=== PATIENT | female | born 1940 | race Caucasian/White ===

== ENCOUNTER 2018-10-17 01:55 | Inpatient (IN) | payer OTHER, MEDICARE ==
[2018-10-17] MEDS ORDERED: NS 1,000 ML IV ONE (02:12)
[2018-10-17 02:28] LABS: PLATELET COUNT 237 10^3/uL (150-400)
--- NOTE | 2018-10-17 04:08 | EDPHY ---
H & P Stated Complaint: frequent falls and memory issues Time Seen by Provider: 10/17/18 02:54 HPI/ROS: HPI The patient presents with increased falls at home, brought in by ambulance. As she lives at home with her son who helps her with many of her ADLs. She has had 3 falls over the last 4 days. She tonight got up to use the bathroom and fell on her way to the bathroom and was unable to get up. She has had similar events over the last several days. Her son says that she normally falls about once a month and it is not very serious, however her falls have become more severe. Two weeks ago she fell and has ongoing left wrist swelling and pain. She does not believe she has lost consciousness. She does not have any chest pain or shortness of breath. Her son says that over the last several weeks they have stopped her antihypertensives and are trying an herbal supplement. She has also stopped her Alzheimer's medications. Her son says that in general she seems more sluggish than usual. She has been eating and drinking normally. REVIEW OF SYSTEMS 10 systems were reviewed and negative with the exception of the elements mentioned in the history of present illness. PMHx: Hypertension, history of CVA, Alzheimer's dementia, primary care is Dr. Cindy Graham Soc Hx: Lives at home with her son who helps her with cooking, cleaning, she toilets herself and can feed herself PHYSICAL General Appearance: Alert, no distress Eyes: Pupils equal and round no pallor or injection ENT, Mouth: Mucous membranes dry Respiratory: There are no retractions, lungs are clear to auscultation Cardiovascular: Regular rate and rhythm Gastrointestinal: Abdomen is soft and non-tender, no masses, bowel sounds normal Neurological: A&O person and place, moves all extremities, no pronator drift Skin: Warm and dry, no rashes Musculoskeletal: Obvious deformity to left wrist with sensation intact distally and brisk capillary refill Extremities: symmetrical, full range of motion Psychiatric: there is no agitation Source: Patient, Family, EMS Exam Limitations: Clinical condition - Personal History Current Tetanus Diphtheria and Acellular Pertussis (TDAP): Unsure - Medical/Surgical History Hx Asthma: No Hx Chronic Respiratory Disease: No Hx Diabetes: No Hx Cardiac Disease: No Hx Renal Disease: Yes Hx Cirrhosis: No Hx Alcoholism: No Hx HIV/AIDS: No Hx Splenectomy or Spleen Trauma: No Other PMH: PMH:HTN, CVAx2,DVT. PSH:hyst, - Social History Smoking Status: Never smoked Constitutional: Initial Vital Signs Temperature (C) 36.8 C 10/17/18 02:03 Heart Rate 105 H 10/17/18 02:03 Respiratory Rate 18 10/17/18 02:03 Blood Pressure 167/94 H 10/17/18 02:03 O2 Sat (%) 91 L 10/17/18 02:03 O2 Delivery Mode Room Air Allergies/Adverse Reactions: penicillin V potassium [From Pen-Vee K] Allergy (Verified 10/17/18 02:03) IVP DYE Allergy (Uncoded 10/17/18 02:03) Home Medications: Medication Instructions Recorded Aspirin [Aspirin 81mg (*)] 81 mg PO HS 10/17/18 Atorvastatin Calcium [Lipitor 20 20 mg PO HS 10/17/18 mg (*)] Cholecalciferol Vit D3 [Vitamin D3 1,000 units PO DAILY 10/17/18 (*)] Donepezil HCl [Aricept 5 MG (*)] 10 mg PO HS 10/17/18 Escitalopram Oxalate [Lexapro] 5 mg PO HS 10/17/18 Herbals/Supplements -Info Only 1 ea PO DAILY 10/17/18 Lisinopril [Zestril 10 mg (*)] 10 mg PO HS 10/17/18 Melatonin [Melatonin 3 MG (*)] 3 - 6 mg PO HS 10/17/18 Sennosides/Docusate Sodium 1 each PO DAILY PRN 10/17/18 [Senna-S Tablet] amLODIPine BESYLATE [Norvasc 10 mg 10 mg PO HS 10/17/18 (*)] Medical Decision Making - Diagnostics EKG Interpretation: EKG: Complete interpretation has been separately recorded in the [facility] archive. Summary impression: Normal sinus rhythm Imaging Results: Chest x-ray single view shows mild cardiomegaly, no infiltrate, interpreted by me, radiology interpretation is pending. X-ray left wrist three views shows old distal radius and ulnar fractures, interpreted by me, radiology interpretation is pending. CT head without contrast demonstrates no acute bleed, discussed with Dr. Chapman of Radiology Imaging: Discussed imaging studies w/ call taker Radiologist, I viewed and interpreted images myself Procedures: SPLINT Procedure: Splint placement. A ortho glass sugar-tong splint was applied to the left wrist by the tech. After application of the splint I returned and re-examined the patient. The splint was adequately immobilizing the joint and distal to the splint the patient's circulation and sensation was intact. Differential Diagnosis: This is an 78-year-old female with past medical history of hypertension, CVA, Alzheimer's dementia who presents with increasing falls at home over the last 4 days in association with generalized weakness. Here, she is hypertensive, otherwise vital signs are normal. She appears mildly dehydrated on exam. Her neurologic exam is nonfocal. Differential diagnosis includes subdural hemorrhage, electrolyte disturbance, renal failure, dehydration, infection such as urinary tract infection or pneumonia. In the emergency department, patient was given supplemental IV fluids for mild tachycardia of about 100. Labs were checked and were unremarkable, UA was indicative of infection. CT scan of head showed no acute bleeding. X-ray of wrist demonstrates old Colles fracture. We will splint this. I do not believe it needs emergent reduction given fall was 2 weeks ago. She may benefit from orthopedics consult while admitted to the hospital. Because of her urinary tract infection and concern for her falls and safety at home, I will admit her to the hospitalist service. - Data Points Laboratory Results: Laboratory Results 10/17/18 02:14 10/17/18 02:14 Medications Given: Acetaminophen (Tylenol) 650 mg PO Q4HRS PRN PRN Reason: Pain, Mild/Fever, Can Take PO Stop: 04/15/19 04:24 Last Admin: 10/17/18 19:41 Dose: 650 mg Amlodipine Besylate (Norvasc) 10 mg PO HS MIRANDA Stop: 04/15/19 20:59 Last Admin: 10/17/18 19:42 Dose: 10 mg Aspirin (Aspirin) 81 mg PO HS MIRANDA Stop: 04/15/19 20:59 Last Admin: 10/17/18 19:42 Dose: 81 mg Atorvastatin Calcium (Lipitor) 20 mg PO HS MIRANDA Stop: 04/15/19 20:59 Last Admin: 10/17/18 19:42 Dose: 20 mg Donepezil HCl (Aricept) 10 mg PO HS MIRANDA Stop: 04/15/19 20:59 Last Admin: 10/17/18 19:42 Dose: 10 mg Escitalopram Oxalate (Lexapro) 5 mg PO HS [facility] Stop: 04/15/19 20:59 Last Admin: 10/17/18 19:41 Dose: 5 mg Heparin Sodium (Porcine) (Heparin Sc Injection) 5,000 unit SC BID [facility] Stop: 04/15/19 08:59 Last Admin: 10/17/18 19:42 Dose: 5,000 unit Hydralazine HCl (Apresoline) 10 mg IVP Q6HRS PRN PRN Reason: SBP>160 Stop: 04/15/19 08:55 Last Admin: 10/17/18 15:44 Dose: 10 mg Lisinopril (Zestril) 10 mg PO [facility] Stop: 04/15/19 20:59 Last Admin: 10/17/18 19:42 Dose: 10 mg Melatonin (Melatonin) 3 - 6 mg PO [facility] Stop: 04/15/19 20:59 Last Admin: 10/17/18 19:42 Dose: 3 mg Discontinued Medications Sodium Chloride (Ns) 1,000 mls @ 0 mls/hr IV ONCE ONE; Wide Open PRN Reason: Protocol Stop: 10/17/18 02:13 Last Admin: 10/17/18 02:49 Dose: 1,000 mls Ceftriaxone Sodium/Dextrose (Rocephin 1 Gm (Premix)) 50 mls @ 100 mls/hr IV EDNOW ONE PRN Reason: Protocol Stop: 10/17/18 04:52 Last Admin: 10/17/18 04:54 Dose: 50 mls Departure - Departure Disposition: [facility] Inpatient Acute Clinical Impression: Falls frequently, Distal radius fracture, left UTI (urinary tract infection) Qualifiers: Urinary tract infection type: site unspecified Hematuria presence: without hematuria Qualified Code(s): N39.0 - Urinary tract infection, site not specified HTN (hypertension) Qualifiers: Hypertension type: essential hypertension Qualified Code(s): I10 - Essential ( primary) hypertension Alzheimer disease Qualifiers: Alzheimer's disease onset: unspecified onset Dementia behavioral disturbance: without behavioral disturbance Qualified Code(s): G30.9 - Alzheimer's disease, unspecified Condition: Fair
[2018-10-17] MEDS ORDERED: ONDANSETRON 4 MG/2 ML VIAL IVP PRN (04:25)
[2018-10-17] MEDS ORDERED: ONDANSETRON DISINTEGRATING 4 MG TAB PO PRN (04:25)
--- NOTE | 2018-10-17 04:56 | PDGENHP ---
History and Physical - Chief Complaint Falls - History of Present Illness 78 yo F w/ hx of Alzheimer's dementia, HTN, CKD, stroke, and DVT presents with falls. The patient suffered a fall 2 weeks ago and hurt her L wrist. Then, over the last few days, the patient has fallen about 4 times. She denies LOC or head trauma. Her son, Satnam, who is her primary caregiver tells me this is unusual for her. He states it is common for her to fall once every few months. He has also noted that her memory is a bit worse than usual. She is A&Ox2 on my evaluation, which he states is close to baseline. She denies infectious symptoms including dysuria, frequency, and fever. Examination in the ED is notable for L wrist fracture and possible UTI. Patient is being admitted for observation and PT/OT evaluations. Case discussed with ED physician Dr. Cloud; records reviewed and summarized above. History Information - Allergies/Home Medication List Allergies/Adverse Reactions: penicillin V potassium [From Pen-Vee K] Allergy (Verified 10/17/18 02:03) IVP DYE Allergy (Uncoded 10/17/18 02:03) Home Medications: Flexeril 07/15/10 [Last Taken Unknown] LISINOPRIL 07/15/10 [Last Taken Unknown] Lopressor 07/15/10 [Last Taken Unknown] MELATONEX TABLET 07/15/10 [Last Taken Unknown] Norvasc 10 mg 07/15/10 [Last Taken Unknown] SIMVASTATIN 07/15/10 [Last Taken Unknown] Sinestin 07/15/10 [Last Taken Unknown] Lexapro 10/17/18 [Last Taken Unknown] Norvasc 10 mg (*) 10/17/18 [Last Taken Unknown] I have personally reviewed and updated: family history, medical history - Past Medical History CVA, dementia, DVT, hypertension Additional medical history: CKD - Surgical History Reports: hysterectomy - Family History Positive for: CAD - Social History Smoking Status: Never smoked Review of Systems Review of Systems: ROS: 10pt was reviewed & negative except for what was stated in HPI & below Physical Exam Physical Exam: Temp Pulse Resp BP Pulse Ox 36.6 C 84 16 168/74 H 92 10/17/18 04:14 10/17/18 04:14 10/17/18 04:14 10/17/18 04:14 10/17/18 04:14 Constitutional: no apparent distress, appears nourished Eyes: PERRL, EOMI Ears, Nose, Mouth, Throat: moist mucous membranes, no oral mucosal ulcers Cardiovascular: regular rate and rhythym, no murmur, rub, or gallop Respiratory: no respiratory distress, clear to auscultation Gastrointestinal: normoactive bowel sounds, soft, non-tender abdomen Skin: warm, normal color Musculoskeletal: full muscle strength, no muscle tenderness Neurologic: CN II-XII Intact, other (A&Ox2, neurologic exam non-focal aside from mild b/l leg weakness R>L) Psychiatric: interacting appropriately, not anxious, poor memory Lab Data & Imaging Review 10/17/18 02:14 10/17/18 02:14 WBC 7.05 10^3/uL (3.80-9.50) 10/17/18 02:14 RBC 4.73 10^6/uL (4.18-5.33) 10/17/18 02:14 Hgb 14.2 g/dL (12.6-16.3) 10/17/18 02:14 Hct 42.4 % (38.0-47.0) 10/17/18 02:14 MCV 89.6 fL (81.5-99.8) 10/17/18 02:14 MCH 30.0 pg (27.9-34.1) 10/17/18 02:14 MCHC 33.5 g/dL (32.4-36.7) 10/17/18 02:14 RDW 14.0 % (11.5-15.2) 10/17/18 02:14 Plt Count 237 10^3/uL (150-400) 10/17/18 02:14 MPV 8.6 fL (8.7-11.7) L 10/17/18 02:14 Neut % (Auto) 78.2 % (39.3-74.2) H 10/17/18 02:14 Lymph % (Auto) 12.1 % (15.0-45.0) L 10/17/18 02:14 [place] % (Auto) 7.1 % (4.5-13.0) 10/17/18 02:14 Eos % (Auto) 1.7 % (0.6-7.6) 10/17/18 02:14 Baso % (Auto) 0.6 % (0.3-1.7) 10/17/18 02:14 Nucleat RBC Rel Count 0.0 % (0.0-0.2) 10/17/18 02:14 Absolute Neuts (auto) 5.52 10^3/uL (1.70-6.50) 10/17/18 02:14 Absolute Lymphs (auto) 0.85 10^3/uL (1.00-3.00) L 10/17/18 02:14 Absolute Monos (auto) 0.50 10^3/uL (0.30-0.80) 10/17/18 02:14 Absolute Eos (auto) 0.12 10^3/uL (0.03-0.40) 10/17/18 02:14 Absolute Basos (auto) 0.04 10^3/uL (0.02-0.10) 10/17/18 02:14 Absolute Nucleated RBC 0.00 10^3/uL (0-0.01) 10/17/18 02:14 Immature Gran % 0.3 % (0.0-1.1) 10/17/18 02:14 Immature Gran # 0.02 10^3/uL (0.00-0.10) 10/17/18 02:14 Sodium 136 mEq/L (135-145) 10/17/18 02:14 Potassium 3.6 mEq/L (3.5-5.2) 10/17/18 02:14 Chloride 107 mEq/L (97-110) 10/17/18 02:14 Carbon Dioxide 20 mEq/l (22-31) L 10/17/18 02:14 Anion Gap 9 mEq/L (6-14) 10/17/18 02:14 BUN 20 mg/dL (7-23) 10/17/18 02:14 Creatinine 1.3 mg/dL (0.6-1.0) H 10/17/18 02:14 Estimated GFR 39 10/17/18 02:14 Glucose 150 mg/dL (70-100) H 10/17/18 02:14 Calcium 9.3 mg/dL (8.5-10.4) 10/17/18 02:14 Total Bilirubin 0.6 mg/dL (0.1-1.4) 10/17/18 02:14 AST 17 IU/L (14-46) 10/17/18 02:14 ALT 27 IU/L (9-52) 10/17/18 02:14 Alkaline Phosphatase 75 IU/L (38-126) 10/17/18 02:14 Total Protein 6.0 g/dL (6.3-8.2) L 10/17/18 02:14 Albumin 3.6 g/dL (3.5-5.0) 10/17/18 02:14 Urine Color YELLOW 10/17/18 03:40 Urine Appearance HAZY 10/17/18 03:40 Urine pH 5.0 (5.0-7.5) 10/17/18 03:40 Ur Specific [place] 1.017 (1.002-1.030) 10/17/18 03:40 Urine Protein 2+ (NEGATIVE) H 10/17/18 03:40 Urine Ketones 1+ (NEGATIVE) H 10/17/18 03:40 Urine Blood NEGATIVE (NEGATIVE) 10/17/18 03:40 Urine Nitrate POSITIVE (NEGATIVE) H 10/17/18 03:40 Urine Bilirubin NEGATIVE (NEGATIVE) 10/17/18 03:40 Urine Urobilinogen NEGATIVE EU (0.2-1.0) 10/17/18 03:40 Ur Leukocyte Esterase 2+ (NEGATIVE) H 10/17/18 03:40 Urine Glucose NEGATIVE (NEGATIVE) 10/17/18 03:40 Urine Opiates Screen NEGATIVE (NEGATIVE) 10/17/18 03:40 Urine Barbiturates NEGATIVE (NEGATIVE) 10/17/18 03:40 Ur Phencyclidine Scrn NEGATIVE (NEGATIVE) 10/17/18 03:40 Ur Amphetamine Screen NEGATIVE (NEGATIVE) 10/17/18 03:40 U Benzodiazepines Scrn NEGATIVE (NEGATIVE) 10/17/18 03:40 Urine Cocaine Screen NEGATIVE (NEGATIVE) 10/17/18 03:40 U Marijuana (THC) Screen NEGATIVE (NEGATIVE) 10/17/18 03:40 Ethyl Alcohol < 10 mg/dL (0-10) 10/17/18 02:14 Visualized and Interpreted Chest x-ray results: Yes Chest X-Ray results: no infiltrate Visualized and Interpreted EKG results: Yes EKG Interpretation: Positive for: other (Sinus tachycardia) Assessment & Plan Assessment: 78 yo F w/ dementia presents with falls possibly due to UTI. Plan: 1. UTI v. asymptomatic bacteriuria - UA w/ 2+ LE and +nitrates; this possibly explains increased frequency of falls. - CTX 1 g qD - Urine culture pending 2. Falls - Possibly due to UTI. Her son is also concerned about stroke noting she has had small, subtle strokes in the past. This is certainly a possibility as she has numerous risk factors (HTN, hx CVA, hx DVT, etc). Her neurological exam is largely non-focal aside from mild leg weakness R>L; son states this is baseline. Noting symptoms have been present for 4-5 days and she has no clear, new neurologic deficits, I think it reasonable to monitor for improvement while on antibiotics prior to undergoing stroke work-up. - Treat possible UTI as above - PT/OT evaluations 3. Acute metabolic on chronic encephalopathy - Confusion mildly increased above baseline, perhaps related to infection. - Acute management as above - Recently discontinued Aricept, which I doubt is contributing 4. Hypertension - This is poorly controlled at the moment after stopping amlodipine and lisinopril over the last month in an effort to decreased medication burden. - Monitor overnight, consider restarting amlodipine tomorrow 5. CKD, Stage III - Cr 1.3 on admission, which is near baseline. - Monitor BMP - Renally dose medications, avoid nephrotoxic agents 6. Hx DVT. PE - In the remote past, no longer on anticoagulation. Diet - Regular Code - Full Ppx - SQH BID Dispo - Admit under observation status
[2018-10-17] MEDS: HEPARIN 5,000 UNIT/0.5 ML INJ SC SCH ×2 (07:47→19:42)
[2018-10-17] MEDS: ACETAMINOPHEN 325 MG TAB PO PRN ×3 (08:15→19:41)
[2018-10-17] MEDS: hydrALAZINE 20 MG/ML VIAL IVP PRN ×2 (09:12→15:44)
[2018-10-17] MEDS ORDERED: SENNOSIDES/DOCUSATE SODIUM TAB PO PRN (09:22)
--- NOTE | 2018-10-17 13:57 | HOSPPROG ---
Hospitalist Progress Note Assessment/Plan: 78 yo F w/ dementia presents with falls possibly due to UTI. #UTI v. asymptomatic bacteriuria - UA w/ 2+ LE and +nitrates; this possibly explains increased frequency of falls. - CTX 1 g qD - Urine culture pending # Falls - Possibly due to UTI. Her son is also concerned about stroke noting she has had small, subtle strokes in the past. This is certainly a possibility as she has numerous risk factors (HTN, hx CVA, hx DVT, etc). Her neurological exam is largely non-focal aside from mild leg weakness R>L; son states this is baseline. Noting symptoms have been present for 4-5 days and she has no clear, new neurologic deficits, I think it reasonable to monitor for improvement while on antibiotics prior to undergoing stroke work-up. - Treat possible UTI as above - PT/OT evaluations #Acute metabolic on chronic encephalopathy - Confusion mildly increased above baseline, perhaps related to infection. - Acute management as above - Recently discontinued Aricept, which I doubt is contributing # Hypertension - This is poorly controlled at the moment after stopping amlodipine and lisinopril over the last month in an effort to decreased medication burden. - Monitor overnight, consider restarting amlodipine tomorrow # CKD, Stage III - Cr 1.3 on admission, which is near baseline. - Monitor BMP - Renally dose medications, avoid nephrotoxic agents # Hx DVT. PE - In the remote past, no longer on anticoagulation. Diet - Regular Code - Full Ppx - SQH BID Dispo - Admit under observation status Subjective: Still feels weak. Left hand pain. Not ready to go home. Objective: Vital Signs Temp Pulse Resp BP Pulse Ox 36.7 C 106 H 16 191/98 H 91 L 10/17/18 12:00 10/17/18 12:00 10/17/18 12:00 10/17/18 12:00 10/17/18 12:00 10/16/18 10/17/18 10/18/18 05:59 05:59 05:59 Intake Total 1000 Balance 1000 - Physical Exam Constitutional: no apparent distress, appears nourished Eyes: PERRL, anicteric sclera Ears, Nose, Mouth, Throat: moist mucous membranes, hearing normal Cardiovascular: No JVD, No edema Respiratory: no respiratory distress, reduced air movement Gastrointestinal: No tenderness, No ascites Skin: warm, normal color Musculoskeletal: joint tenderness, pain with ROM, generalized weakness Neurologic: AAOx3 Psychiatric: interacting appropriately, not anxious, not encephalopathic ICD10 Worksheet Patient Problems: Problems Problem Status Onset Falls frequently Acute UTI (urinary tract infection) Acute HTN (hypertension) Acute Alzheimer disease Acute
--- NOTE | 2018-10-17 15:08 | ASMTCMCOM ---
CM Note CM Note Notes: CM spoke to DAVID Bains. CM met w/ pt for dispo planning. OT is recommending SNF. PT is pending. Pt is ok w/ referrals being made to SNFs. CM spoke to pts son Satnam in [place]. Satnam reports that him and his brother expected that pt would need rehab. CM provided senior blue book. Referrals made to [facility], [facility] and [facility]. CM completed non triggering pasrr. CM to follow. Plan: SNF Date Signed: 10/17/2018 03:07 PM Electronically Signed By:SALVADOR Cole
[2018-10-17] MEDS: ESCITALOPRAM OXALATE 10 MG TAB PO SCH (19:41)
[2018-10-17] MEDS: DONEPEZIL HCL 5 MG TAB PO SCH (19:42)
[2018-10-17] MEDS: LISINOPRIL 10 MG TAB PO SCH (19:42)
[2018-10-17] MEDS: ATORVASTATIN CALCIUM 20 MG TAB PO SCH (19:42)
[2018-10-17] MEDS: MELATONIN 3 MG TAB PO SCH (19:42)
[2018-10-17] MEDS: ASPIRIN 81 MG CHEWABLE TAB PO SCH (19:42)
[2018-10-18] MEDS: ACETAMINOPHEN 325 MG TAB PO PRN ×3 (02:26→19:30)
--- NOTE | 2018-10-18 05:29 | CPEKG ---
Test Reason : OPEN Blood Pressure : / mmHG Vent. Rate : 100 BPM Atrial Rate : 101 BPM P-R Int : 160 ms QRS Dur : 091 ms QT Int : 373 ms P-R-T Axes : 051 -27 030 degrees QTc Int : 482 ms Sinus tachycardia Left ventricular hypertrophy Confirmed by Janice Cloud ([id number]) on 10/18/2018 5:29:25 AM Referred By: Confirmed By:Janice Cloud
[2018-10-18] MEDS: CHOLECALCIFEROL VIT D3 1,000 UNITS TAB PO SCH (08:20)
[2018-10-18] MEDS: HEPARIN 5,000 UNIT/0.5 ML INJ SC SCH ×2 (08:21→20:51)
--- NOTE | 2018-10-18 08:36 | HOSPPROG ---
Hospitalist Progress Note Assessment/Plan: 78 yo F w/ dementia presents with falls possibly due to UTI. First encounter, chart reviewed. #UTI v. asymptomatic bacteriuria \urine cx pending -ceftriaxone # Falls -could be multifactorial -she has a radius fx that occurred two weeks ago, unclear if she went home after this, but this is really affecting her mobility -son had mentioned concerns of a stroke, has a hx of HTN, CVA, DVT-she has not focal neurologic deficits. patient describes her legs falling from under her, could be spinal stenosis, will see how she does w PT and OT. - Possibly due to UTI. #Acute metabolic on chronic encephalopathy - Confusion mildly increased above baseline, perhaps related to infection. - she is alert and appropriate for me, but has some short term and half-way memory losses #radius fx -spoke w Dr Schmidt and he will see her tomorrow -she has a splint in place from the ER #tachycardia -will get a VQ scan, she is allergic to the dye from a CT scan -she has been less mobile, falls easily # Hypertension -on lisinopril and amlodipine # CKD, Stage III - Cr 1.3 on admission, which is near baseline. # Hx DVT. PE - In the remote past, no longer on anticoagulation. #plan: Dr Schmidt to see, evaluate PT and OT notes and see if she needs further imaging. Told her son, Cole, we could consider an MRI to r/o a stroke but she has no focal deficits. He is fine w the current plan. She will require another midnight stay for further evaluation. Subjective: Emma has no complaints, no pain. Objective: Vital Signs Temp Pulse Resp BP Pulse Ox 36.7 C 101 H 16 151/78 H 89 L 10/18/18 02:21 10/18/18 02:21 10/18/18 02:21 10/18/18 02:21 10/18/18 02:21 10/17/18 10/18/18 10/19/18 05:59 05:59 05:59 Intake Total 1000 200 Balance 1000 200 - Physical Exam Constitutional: no apparent distress, not in pain, obese Eyes: PERRL Ears, Nose, Mouth, Throat: hearing normal Cardiovascular: regular rate and rhythym Respiratory: no respiratory distress Gastrointestinal: normoactive bowel sounds Skin: warm Musculoskeletal: generalized weakness Neurologic: AAOx3 Psychiatric: interacting appropriately, poor memory ICD10 Worksheet Patient Problems: Problems Problem Status Onset Alzheimer disease Acute Distal radius fracture, left Acute Falls frequently Acute HTN (hypertension) Acute UTI (urinary tract infection) Acute
[2018-10-18] MEDS ORDERED: Herbals/Supplements -Info Only PO SCH (09:00)
--- NOTE | 2018-10-18 14:57 | PDMN ---
Medical Necessity Medical necessity: Pt meets INPT criteria per MD as of 10/18/18 and MCG Systemic or Infectious Condition GRG (est. LOS >2 MN for ongoing eval/mgmt of UTI vs aysmptomatic bacteruria, falls with recent radius fracture affecting her mobility, possibly d/t UTI, acute metabolic on chronic encephalopathy, tachycardia, comorbid htn, CKD).
[2018-10-18] MEDS: ASPIRIN 81 MG CHEWABLE TAB PO SCH (20:50)
[2018-10-18] MEDS: ESCITALOPRAM OXALATE 10 MG TAB PO SCH (20:50)
[2018-10-18] MEDS: MELATONIN 3 MG TAB PO SCH (20:50)
[2018-10-18] MEDS: DONEPEZIL HCL 5 MG TAB PO SCH (20:51)
[2018-10-18] MEDS: LISINOPRIL 10 MG TAB PO SCH (20:51)
[2018-10-18] MEDS: ATORVASTATIN CALCIUM 20 MG TAB PO SCH (20:51)
[2018-10-19] MEDS: ENOXAPARIN 40 MG/0.4 ML SYR SC SCH (08:14)
[2018-10-19] MEDS: CHOLECALCIFEROL VIT D3 1,000 UNITS TAB PO SCH (08:15)
--- NOTE | 2018-10-19 08:40 | PDIAF ---
- Diagnosis Diagnosis: left wrist fracture - subacute Code Status: Full Code - Medication Management Discharge Medications: electronically signed and located in the Home Medication List. - Orders Additional Instructions: left wrist splint ice and elevate encourage digital rom f/u at two weeks [facility] seek attn for increasing pain, swelling or other focal complaint - Follow Up Care Current Providers and Referrals: Cindy Graham MD [Primary Care Provider] - As per Instructions Howie Schmidt MD [Medical Doctor] -
--- NOTE | 2018-10-19 08:40 | SOAPPROG ---
SOKENJI Progress Note Assessment/Plan: Assessment: left wrist - subacute fx Plan:patient's radiographs demonstrate subacute wrist fx to her left wrist, there is shortening and angulation at the fx site with sclerosis and callous formation. No reduction is possible or required at this stage. I would recommend subjective support with a wrist splint, digital rom, and f/u at two weeks for repeat xrays. she may then begin OT for rom as tolerated. full consultation will occur today 10/19/18 08:37 Objective: Vital Signs Temp Pulse Resp BP Pulse Ox 36.9 C 105 H 18 180/94 H 92 10/19/18 07:54 10/19/18 07:54 10/19/18 07:54 10/19/18 07:54 10/19/18 07:54 10/18/18 10/19/18 10/20/18 05:59 05:59 05:59 Intake Total 200 Balance 200 ICD10 Worksheet Patient Problems: Problems Problem Status Onset Alzheimer disease Acute Distal radius fracture, left Acute Falls frequently Acute HTN (hypertension) Acute UTI (urinary tract infection) Acute
--- NOTE | 2018-10-19 08:53 | HOSPPROG ---
Hospitalist Progress Note Assessment/Plan: 78 yo F w/ dementia presents with falls possibly due to UTI. #UTI v. asymptomatic bacteriuria, urine cx shows ecoli (rueda sensitive) -ceftriaxone # Falls -could be multifactorial -she has a radius fx that occurred two weeks ago, unclear if she went home after this, but this is really affecting her mobility -son had mentioned concerns of a stroke, has a hx of HTN, CVA, DVT-she has not focal neurologic deficits. patient describes her legs falling from under her, could be spinal stenosis, will see how she does w PT and OT. - Possibly due to UTI. #Acute metabolic on chronic encephalopathy - Confusion mildly increased above baseline, perhaps related to infection. - she is alert and appropriate for me, but has some short term and senior living memory losses #radius fx -appreciate Dr Schmidt -recommendation is a wrist splint, ROM with fingers, f/u with repeat x ray in 2 weeks #tachycardia -VQ scan shows low probability for a PE # Hypertension -on lisinopril and amlodipine *lower extremity swelling -per son and patient this has been ongoing -due to her persistent weakness; will get an echo # CKD, Stage III - Cr 1.3 on admission, which is near baseline. # Hx DVT. PE - In the remote past, no longer on anticoagulation. *anxiety -spoke w PT and OT, she was so anxious about getting out of bed today, will talk w patient tomorrow and see if this has been ongoing Subjective: Emma said she feels fine, appetite is good Objective: Vital Signs Temp Pulse Resp BP Pulse Ox 36.9 C 105 H 18 180/94 H 92 10/19/18 07:54 10/19/18 07:54 10/19/18 07:54 10/19/18 07:54 10/19/18 07:54 10/18/18 10/19/18 10/20/18 05:59 05:59 05:59 Intake Total 200 Balance 200 - Physical Exam Constitutional: no apparent distress, appears nourished, not in pain Eyes: PERRL Ears, Nose, Mouth, Throat: hearing normal Cardiovascular: regular rate and rhythym Respiratory: no respiratory distress Gastrointestinal: normoactive bowel sounds Skin: warm Musculoskeletal: generalized weakness Neurologic: AAOx3 (to person, place time and situation) Psychiatric: interacting appropriately, not encephalopathic ICD10 Worksheet Patient Problems: Problems Problem Status Onset Alzheimer disease Acute Distal radius fracture, left Acute Falls frequently Acute HTN (hypertension) Acute UTI (urinary tract infection) Acute
--- NOTE | 2018-10-19 12:47 | ASMTCMCOM ---
CM Note CM Note Notes: I spoke with patient and her son Cole. They'd like [facility] for rehab. I sent a message to the facility. Discharge likely Saturday 10/21. Case Management will follow. Current CM Discharge plan: [facility] Date Signed: 10/19/2018 12:46 PM Electronically Signed By:Yasimne Gibbs RN
[2018-10-19] MEDS: ACETAMINOPHEN 325 MG TAB PO PRN (16:18)
[2018-10-19] MEDS: LISINOPRIL 10 MG TAB PO SCH (20:37)
[2018-10-19] MEDS: ASPIRIN 81 MG CHEWABLE TAB PO SCH (20:37)
[2018-10-19] MEDS: ATORVASTATIN CALCIUM 20 MG TAB PO SCH (20:37)
[2018-10-19] MEDS: MELATONIN 3 MG TAB PO SCH (20:37)
[2018-10-19] MEDS: DONEPEZIL HCL 5 MG TAB PO SCH (20:37)
[2018-10-19] MEDS: ESCITALOPRAM OXALATE 10 MG TAB PO SCH (20:37)
--- NOTE | 2018-10-20 07:36 | GCON ---
INPATIENT CONSULTATION DATE OF CONSULTATION: 10/19/2018 CHIEF COMPLAINT: Falls, left wrist pain. HISTORY OF PRESENT ILLNESS: This is an 78-year-old [id number] woman, who I have been asked to see for left wrist pain and fracture. She has a recurrent history of falls. She fell approximate ly 2-3 weeks ago. Did not seek attention at that time. She fell 2-3 days ago and given her left wri st pain was brought to the emergency department. X-rays demonstrated a subacute wrist fracture at th at point, and she was placed into a splint and admitted for medical management. Currently she contin ues to have left wrist pain. She denies any elbow or shoulder complaints. PAST MEDICAL HISTORY: Recurrent falls, dementia, hypertension and a cerebrovascular accident. PAST SURGICAL HISTORY: Hysterectomy. MEDICATIONS: She takes lisinopril, Lopressor, Norvasc, Lexapro and Flexeril. ALLERGIES: To penicillin and IV contrast. SOCIAL HISTORY: Denies any tobacco or alcohol use. REVIEW OF SYSTEMS: Negative for current chest pain, shortness of breath, belly pain, back pain, numb ness, tingling, or other joint-related complaints. OBJECTIVE: GENERAL APPEARANCE: This is a pleasant woman. HEENT: Normocephalic, atraumatic. NECK: Nontender. EXTREMITIES: Left upper extremity reveals a sling, a sugar-tong splint, and her digits are present. There is brisk capillary refill. Intact digital flexion-extension of her thumb, index , middle ring and small fingers. Sensation is intact across the radial, ulnar, median nerve sensatio n distributions. Right upper extremity demonstrates no step-off tenderness, bruising or deformity. Bilateral lower extremities are unremarkable. IMAGING: Radiographs demonstrate an extra-articular distal radius fracture with 15 degrees apex vola r angulation, shortening of approximately 5 mm and no radial ulnar displacement. She has sclerosis a nd evidence of callus formation. IMPRESSION: Subacute left wrist fracture. TREATMENT PLAN: Given the patient's current symptomatology, I have recommended usage of a sling and splint, ice and elevation. She is to avoid lifting, pushing, falling activities. I would like to se e her back in 1-2 weeks for repeat radiographs. I have discussed with both her and her son that the x-rays demonstrate a less than optimal position with shortening and angulation across the wrist. Giv en the current healing, I have not recommended surgical intervention or closed reduction attempting. She will follow up for repeat clinical and radiographic evaluation. If she has long-term dysfunctio n and limitation as well as pain, she may be a candidate for surgical osteotomy and correction, but I do not think this will be necessary currently. /[id number]/MODL
[2018-10-20] MEDS: CHOLECALCIFEROL VIT D3 1,000 UNITS TAB PO SCH (08:35)
[2018-10-20] MEDS: LISINOPRIL 10 MG TAB PO SCH (08:35)
[2018-10-20] MEDS: ENOXAPARIN 40 MG/0.4 ML SYR SC SCH (08:36)
--- NOTE | 2018-10-20 10:55 | HOSPPROG ---
Hospitalist Progress Note Assessment/Plan: 78 yo F w/ dementia presents with falls possibly due to UTI. #UTI v. asymptomatic bacteriuria, urine cx shows ecoli (rueda sensitive) -ceftriaxone # Falls -could be multifactorial -she has a radius fx that occurred two weeks ago, unclear if she went home after this, but this is really affecting her mobility - Possibly due to UTI. -spoke w PT and nursing, she is fearful of walking and has balance issues, w her hx of a stroke will get an MRI to r/o a cerebellar infarct #Acute metabolic on chronic encephalopathy - resolved, she is on Aricept - she is alert and oriented to person, place time and situation #radius fx -appreciate Dr Schmidt -recommendation is a wrist splint, ROM with fingers, f/u with repeat x ray in 2 weeks #tachycardia -VQ scan shows low probability for a PE # Hypertension -on lisinopril and amlodipine (changed lisinopril to be given in the morning) *lower extremity swelling -per son and patient this has been ongoing -due to her persistent weakness; will get an echo # CKD, Stage III - Cr 1.3 on admission, which is near baseline. # Hx DVT. PE - In the remote past, no longer on anticoagulation. #Plan: get an MRI to r/o stroke, nothing acute is noted, but she has been falling at home and has difficulty standing. She has no back pain. Subjective: Emma is fearful of needles and doesn't want another IV in. Overall, feeling fine. Objective: Vital Signs Temp Pulse Resp BP Pulse Ox 36.9 C 97 16 160/86 H 96 10/20/18 07:52 10/20/18 07:52 10/20/18 07:52 10/20/18 08:35 10/20/18 07:52 10/19/18 10/20/18 10/21/18 05:59 05:59 05:59 Intake Total 200 250 Balance 200 250 - Physical Exam Constitutional: no apparent distress, appears nourished, not in pain Eyes: PERRL Ears, Nose, Mouth, Throat: hearing normal Cardiovascular: regular rate and rhythym Respiratory: no respiratory distress Gastrointestinal: normoactive bowel sounds Skin: warm Musculoskeletal: generalized weakness Neurologic: AAOx3 Psychiatric: interacting appropriately ICD10 Worksheet Patient Problems: Problems Problem Status Onset Alzheimer disease Acute Distal radius fracture, left Acute Falls frequently Acute HTN (hypertension) Acute UTI (urinary tract infection) Acute
--- NOTE | 2018-10-20 13:46 | ASMTCMCOM ---
CM Note CM Note Notes: Case Management Chart Review for Discharge Support: [facility] discussed with Stephanie RN, she shares the patient has anxiety around needles and falls. Plan continues to be discharge to SNF, accepted to [facility] updated Rebecca the patient has changed from IV to PO antibiotics.CM to follow. D/C Plan: [facility] at [place]. Date Signed: 10/20/2018 01:46 PM Electronically Signed By:Linda Odell
[2018-10-20] MEDS: CEFUROXIME AXETIL 250 MG TAB PO SCH ×2 (14:01→21:15)
--- NOTE | 2018-10-20 15:48 | ECHO ---
[email or web address] [address] [address] Main: [phone] Fax: Transthoracic Echocardiogram Name: CHENG CAPUTO MR#: [id number] Study Date: 10/20/2018 Study Time: 02:55 PM Date of : 1940 Age: 78 year(s) Height: 167.6 cm (66 in.) Weight: 77.57 kg (171 lb.) BSA: 1.87 m2 Gender: Female Examination: Echo Indication: weakness, leg swelling Image Quality: Technically Difficult Contrast: Requested by: Lalitha Jeffers BP: 165 mmHg/82 mmHg Heart Rate: Rhythm: Indication: weakness, leg swelling Procedure Staff Sucker Machine Operator: Desi Giang RDCS Reading Physician: Neo Moses MD Requesting Provider: Conclusions: 1)Technically limited echo. 2)Normal LV size and systolic function with a LVEF of 57%. 3)Mild concentric LVH with mild diastolic dysfunction noted. 4)Mild to moderate MR without MV prolapse. Measurements: Chambers Valvular Assessment AV/MV Valvular Assessment TV/PV Normal Normal Normal Name Value Range Name Value Range Name Value Range IVSd (2D): 1.2 cm (0.6 cm-1.1 AV Vmax: 1.61 m/s (1 m/s-1.7 PV Vmax: 0.98 m/s (0.6 m/s-0.9 cm) m/s) m/s) LVDd (2D): 4.8 cm (3.9 cm-5.3 AV maxP mmHg ( - ) PV PGmax: 4 mmHg ( - ) cm) LVOT Vmax: 0.86 m/s (0.7 m/s-1.1 LVDs (2D): 3.5 cm (2.1 cm-4 m/s) cm) FARA (Vmax): 1.9 cm2 ( - ) LVPWd (2D): 1.1 cm ( - ) MV E Vmax: 1.01 m/s ( - ) LVOTd 2.1 cm 2.1 cm mm MV A Vmax: 1.45 m/s ( - ) LVEF (BP): 57 % (>=55 %) MV E/A: 0.70 ( - ) RVDd(2D): 3.2 cm (1.9 cm-3.8 cmmm) Continued Measurements: Chambers Valvular Assessment AV/MV Name Value Name Value LADs: 3.7 cm MV DecTime: 222 m/s LADs Lon.5 cm MV E' Septal: 0.04 m/s LA Area: 18.4 cm2 MV E/E' Septal: 23.50 TAPSE: 1.8 cm MV E/E' Lateral: 18.50 Patient: CHENG CAPUTO Study Date: 10/20/2018 Page 1 of 2 02:55 PM Additional Vessels Name Value Ao Ascendin.9 cm Findings: Left Ventricle: Normal size left ventricle. Mild concentric LV hypertrophy. Normal global systolic LV function. EF is 57 %. Cannot rule out wall motion abnormalities due to poor endocardial definition. Diastolic function is indeterminate. Right Ventricle: RV poorly visualized. Grossly normal size and function. Left Atrium: The left atrium is normal in size. Right Atrium: The right atrium is normal in size. Mitral Valve: Mild mitral annular calcification. Mild to moderate mitral regurgitation. No mitral stenosis is present. Mild thickening of the mitral leaflets with mild calcification of the posterior leafet.. Aortic Valve: Aortic valve is not well visualized. There is no aortic valve regurgitation. No aortic valve stenosis is present. Tricuspid Valve: Tricuspid valve not well visualized. There is no significant tricuspid valve regurgitation. Pulmonary artery pressure is not obtained due to inadequate TR jet. Pulmonic Valve: Pulmonary valve not well visualized. Aorta: Normal size aortic root. Normal size ascending aorta measuring 2.9 cm. IVC: Normal size and course of the IVC. Pericardium: No pericardial effusion. There is pericardial fat. Exam Comments: Patient has broken left arm in a sling, immobilized across left side of chest. Limited acoustic windows available. (No Signature Object) Patient: CHENG CAPUTO Study Date: 10/20/2018 Page 2 of 2 02:55 PM [id number]
[2018-10-20] MEDS: MELATONIN 3 MG TAB PO SCH (20:48)
[2018-10-20] MEDS: DONEPEZIL HCL 5 MG TAB PO SCH (20:48)
[2018-10-20] MEDS: ATORVASTATIN CALCIUM 20 MG TAB PO SCH (20:48)
[2018-10-20] MEDS: ASPIRIN 81 MG CHEWABLE TAB PO SCH (20:49)
[2018-10-20] MEDS: ESCITALOPRAM OXALATE 10 MG TAB PO SCH (20:49)
[2018-10-21] MEDS: CEFUROXIME AXETIL 250 MG TAB PO SCH (09:05)
[2018-10-21] MEDS: LISINOPRIL 10 MG TAB PO SCH (09:06)
[2018-10-21] MEDS: ENOXAPARIN 40 MG/0.4 ML SYR SC SCH (09:07)
[2018-10-21] MEDS: CHOLECALCIFEROL VIT D3 1,000 UNITS TAB PO SCH (09:07)
[2018-10-21] MEDS: ACETAMINOPHEN 325 MG TAB PO PRN (09:13)
[2018-10-21] MEDS ORDERED: LISINOPRIL 10 MG TAB PO ONE (09:58)
--- NOTE | 2018-10-21 10:02 | HOSPPROG ---
Hospitalist Progress Note Assessment/Plan: 78 yo F w/ dementia presents with falls possibly due to UTI. #UTI v. asymptomatic bacteriuria, urine cx shows ecoli (rueda sensitive) -ceftriaxone x 2 doses -few days of oral # Falls - multifactorial -reviewed her MRI, hx of bilateral cerebellar infarcts-likely the etiology of her falling -she has a radius fx that occurred two weeks ago, unclear if she went home after this, but this is really affecting her mobility - Possibly due to UTI. #Acute metabolic on chronic encephalopathy - resolved, she is on Aricept - she is alert and oriented to person, place time and situation #radius fx -appreciate Dr Schmidt -recommendation is a wrist splint, ROM with fingers, f/u with repeat x ray in 2 weeks #tachycardia -VQ scan shows low probability for a PE # Hypertension -on lisinopril and amlodipine (changed lisinopril to be given in the morning), increased the dose *lower extremity swelling -per son and patient this has been ongoing -due to her persistent weakness; echo shows mild LVH and ef of 57% # CKD, Stage III - Cr 1.3 on admission, which is near baseline. # Hx DVT. PE - In the remote past, no longer on anticoagulation. #Plan: dc to rehab Subjective: Emma feels fine, has been fearful to walk due to falling. Objective: Vital Signs Temp Pulse Resp BP Pulse Ox 36.7 C 101 H 16 186/98 H 89 L 10/21/18 07:39 10/21/18 07:39 10/21/18 07:39 10/21/18 09:06 10/21/18 07:39 10/20/18 10/21/18 10/22/18 05:59 05:59 05:59 Intake Total 250 1000 Output Total 875 Balance 250 125 - Physical Exam Constitutional: no apparent distress, appears nourished, not in pain Eyes: PERRL Ears, Nose, Mouth, Throat: hearing normal Respiratory: no respiratory distress Skin: warm Musculoskeletal: generalized weakness Neurologic: AAOx3 Psychiatric: interacting appropriately ICD10 Worksheet Patient Problems: Problems Problem Status Onset Alzheimer disease Acute Distal radius fracture, left Acute Falls frequently Acute HTN (hypertension) Acute UTI (urinary tract infection) Acute
--- NOTE | 2018-10-21 10:11 | PDIAF ---
- Diagnosis Diagnosis: left wrist fracture - subacute, htn, falls, uti Code Status: Full Code - Medication Management Discharge Medications: electronically signed and located in the Home Medication List. - Orders Services needed: Physical Therapy, Occupational Therapy, Speech Language Pathologist Additional Instructions: left wrist splint ice and elevate encourage digital rom begin shoulder rom f/u at two weeks [facility] seek attn for increasing pain, swelling or other focal complaint lisinopril dose has been increased to 20 mg daily and to take in the morning, you've been taking at night you have a hx of a cerebellar infarct (stroke)-this is why you have trouble w walking, you need PT and OT to help get you stronger - Follow Up Care Current Providers and Referrals: Cindy Graham MD [Primary Care Provider] - As per Instructions Howie Schmidt MD [Medical Doctor] -
[2018-10-21 10:58] VITALS: BP 162/76
--- NOTE | 2018-10-21 11:18 | ASMTLACE ---
LACE Length of stay for Answers: 4-6 days current admission Acuity / Level of Answers: Yes Care: Did the patient have an inpatient admission? Comorbidities - select Answers: Cerebrovascular disease all that apply (CVA, TIA, aneurysms, vasc ular dementia) Dementia History of falls Mild liver or renal disease Other Notes: HTN # of Emergency department Answers: 1-2 visits in the last 6 months Score: 18 Date Signed: 10/21/2018 11:17 AM Electronically Signed By:SALVADOR Cole
--- NOTE | 2018-10-21 11:27 | ASDISCHSUM ---
Discharge Information Plan Status:SNF Medically Cleared to Leave:10/20/2018 Discharge Date:10/20/2018 CM D/C Disposition: ADT D/C Disposition: Projected Discharge Date:10/21/2018 11:00 AM Transportation at D/C: Discharge Delay Reason: Follow-Up Date:10/21/2018 11:00 AM Discharge Slot: Final Diagnosis: Placement Information Referral Type:*Usp/SNF Referral ID:[id number] Provider Name:Elia berg [place] Address 1:[address] Address 2: City:[place] Selection Factors: State:[place] Patient Contact Information Contact Name:DELFINO Relationship:Son Address:[address] City:[place] Alternate Phone: State/Zip Code:[place] [address] Email: Financial Information Financial Class:Medicare Primary Plan Desc:MEDICARE INPATIENT Primary Plan Number:[id number] Secondary Plan Desc:[employer]/MDR SUPPLEMENT Secondary Plan Number:[id number] Assessment Information LACE LACE Length of stay for Answers: 4-6 days current admission Acuity / Level of Answers: Yes Care: Did the patient have an inpatient admission? Comorbidities - select Answers: Cerebrovascular disease all that apply (CVA, TIA, aneurysms, vasc ular dementia) Dementia History of falls Mild liver or renal disease Other Notes: HTN # of Emergency department Answers: 1-2 visits in the last 6 months Score: 18 Date Signed: 10/21/2018 11:17 AM Electronically Signed By:SALVADOR Cole [facility] CM Progress Note CM Note CM Note Notes: CM spoke to DAVID Bains. CM met w/ pt for dispo planning. OT is recommending SNF. PT is pending. Pt is ok w/ referrals being made to SNFs. CM spoke to pts son Satnam in [place]. Satnam reports that him and his brother expected that pt would need rehab. CM provided senior blue book. Referrals made to [facility], [facility] and [facility]. CM completed non triggering pasrr. CM to follow. Plan: [facility] Date Signed: 10/17/2018 03:07 PM Electronically Signed By:SALVADOR Cole [facility] Progress Note CM Note CM Note Notes: I spoke with patient and her son Cole. They'd like [facility] for rehab. I sent a message to the facility. Discharge likely Saturday 10/21. Case Management will follow. Current CM Discharge plan: [facility] Date Signed: 10/19/2018 12:46 PM Electronically Signed By:Yasmine Gibbs RN [facility] CM Progress Note CM Note CM Note Notes: Case Management Chart Review for Discharge Support: [facility] discussed with DAVID Brown, she shares the patient has anxiety around needles and falls. Plan continues to be discharge to SNF, accepted to [facility] updated Rebecca the patient has changed from IV to PO antibiotics.CM to follow. D/C Plan: [facility] at [place]. Date Signed: 10/20/2018 01:46 PM Electronically Signed By:Linda Odell Case Management Discharge Plan Note Case Management Discharge Discharge Order Complete? Answers: Yes Patient to Obtain Answers: Other Notes: [facility] Medications Transportation Arranged Answers: [facility] will Pick (Date 10/21/2018 01:00 PM & Time) EMTALA Complete Answers: No Case Management Transport Answers: Yes Notes: PCS completed Form Complete Faxed Final Orders Answers: Yes Agency/Facility Transfer Answers: Yes Report Printed & Faxed to Receiving Agency Family Notified Answers: Yes Discharge Comments Notes: Pts case discussed w/ Lalitha Jeffers NP and DAVID Johnson. DC orders sent to [facility]. Elizabeth will call to give report. CM left a msg for pts son and informed him of pts d/c. Elizabeth is recommending pt goes in a stretcher because pt has cerebellar infarcts which results in loss of balance. PCS form completed. A copy is in pts chart. CM available for changes. Plan: [facility] Date Signed: 10/21/2018 11:24 AM Electronically Signed By:SALVADOR Cole Intervention Information Intervention Type:*Incorrect Registration Date of Service:10/17/2018 01:34 PM Patient Type:Inpatient Staff Member:DAVID Gómez, Laura Hours: Discipline: Severity: Comment: Intervention Type:*LEUNG-Signed Date of Service:10/18/2018 10:32 AM Patient Type:Observation Staff Member:Gianna Garcia Hours: Discipline: Severity: Comment: Intervention Type:*IM-Signed Date of Service:10/21/2018 11:10 AM Patient Type:Inpatient Staff Member:Gianna Garcia Hours: Discipline: Severity: Comment:
--- NOTE | 2018-10-21 11:57 | GDS ---
DISCHARGE DIAGNOSES: 1. Urinary tract infection. 2. Gait instability, with multiple falls. 3. Acute metabolic on chronic encephalopathy. 4. Left radius fracture. 5. Tachycardia. 6. Hypertension. 7. Lower extremity swelling. 8. Chronic kidney disease. 9. History of deep vein thrombosis, pulmonary embolus remotely in her past. CONSULTATION: Dr. Howie Schmidt. HISTORY: Briefly, the patient is an 78-year-old woman with a history of dementia, hypertension, chronic kidney disease, stroke and DVT, who presented with falls. She had a fall 2 weeks prior to admission and hurt her wrist. Then over the last few days, she had fallen about 4 times. She lives at home with her son. On admission, she was alert and oriented x2. There was concern that maybe her falling was due to a urinary tract infection. Today, she will be discharged to rehab for further care. HOSPITAL COURSE: 1. Urinary tract infection. She was treated with ceftriaxone. She will get a few more days of oral antibiotics. 2. Falls. There was a concern by her son that she may have had a stroke. She had an MRI. This showed that she had bilateral cerebral infarcts in the past. I suspect this is why she keeps falling. She also is very weak. She will get rehabilitation for this. 3. Acute metabolic on chronic encephalopathy. Resolved. On Aricept. 4. Radius fracture. Further followup with Dr. Schmidt in 2 weeks. 5. Tachycardia. V/Q scan was performed, which showed a low probability for PE. 6. Hypertension. Her blood pressure has been quite elevated. Her lisinopril dose has been doubled and given in the morning instead of at night. Will continue amlodipine at night. 7. Lower extremity swelling. Reviewed her echo, which showed mild LVH and EF of 50%. 8. Chronic kidney disease. Her creatinine is 1.3, which is close to her baseline. 9. History of DVT, PE. This is remotely in the past. DISCHARGE CONDITION: Fair. Her blood pressure is elevated and has not received her lisinopril. It is 186/98, heart rate of 100, respiratory rate of 16, O2 sats on room air 91%. Temperature is 36.7 Celsius. DISCHARGE MEDICATIONS: Please see the EMR. DISCHARGE INSTRUCTIONS: 1. Continue with the splint to the left wrist. 2. To do gentle range of motion with her fingers. 3. To follow up in 2 weeks at [facility]. 4. Her lisinopril dose has been increased from 10 mg to 20 mg. Greater than 30 minutes discharging and coordinating the patient's care. Copy requested to: Dr. Graham /[id number]/MODL MTDD
[2018-10-22] MEDS ORDERED: LISINOPRIL 10 MG TAB PO SCH (09:00)
== END 2018-10-21 13:00 | DRG 689 ==
LOC: EDUNIT# → INTOOBSV 04:24 → F3E 05:13 → OBSVTOIN 10-18 14:04
PROVIDERS: ADMIT Student in an Organized Health Care Education/Training Program; ATTEND Student in an Organized Health Care Education/Training Program
DX: N39.0 Urinary tract infection, site not specified (principal); G93.41 Metabolic encephalopathy; S52.502A Unspecified fracture of the lower end of left radius, initial encounter for closed fracture; S52.615A Nondisplaced fracture of left ulna styloid process, initial encounter for closed fracture; W19.XXXA Unspecified fall, initial encounter; Y92.018 Other place in single-family (private) house as the place of occurrence of the external cause; E86.9 Volume depletion, unspecified; R29.6 Repeated falls; R26.9 Unspecified abnormalities of gait and mobility; R00.0 Tachycardia, unspecified; I12.9 Hypertensive chronic kidney disease with stage 1 through stage 4 chronic kidney disease, or unspecified chronic kidney disease; N18.3 Chronic kidney disease, stage 3 (moderate); G30.9 Alzheimer's disease, unspecified; F02.80 Dementia in other diseases classified elsewhere, unspecified severity, without behavioral disturbance, psychotic disturbance, mood disturbance, and anxiety; Z86.73 Personal history of transient ischemic attack (TIA), and cerebral infarction without residual deficits; Z88.0 Allergy status to penicillin; Z86.711 Personal history of pulmonary embolism; Z86.718 Personal history of other venous thrombosis and embolism
CPT/HCPCS: 80305; 96365; 97110-GP; 97116-GP; 97163-GP; 97166-GO; 97530-GP; 97535-GO; A4565; A9540; A9558; G0378; G0480; J0360; J0696; J1644; J1650

== ENCOUNTER → 2018-11-20 | Outpatient (CLI) | payer OTHER, MEDICARE | LOC: BMCIMAGING 14:05 | PROVIDERS: ATTEND Orthopaedic Surgery | DX: S52.502D Unspecified fracture of the lower end of left radius, subsequent encounter for closed fracture with routine healing (principal); S52.202D Unspecified fracture of shaft of left ulna, subsequent encounter for closed fracture with routine healing ==

== ENCOUNTER 2019-02-17 14:10 | Inpatient (IN) | payer OTHER, MEDICARE ==
--- NOTE | 2019-02-17 14:50 | EDPHY ---
H & P Time Seen by Provider: 02/17/19 14:36 HPI/ROS: CHIEF COMPLAINT: "Increased anxiety, increased weakness, increased confusion" per son HISTORY OF PRESENT ILLNESS: The patient is an 78-year-old male who presents emergency department with multiple complaints. Patient has had numerous small strokes and gets around the house using a walker. Over the past week patient has had increased difficulty with ambulation. When she uses her walker and tries to move about how she has increasing dyspnea on exertion. Patient's son some arises her symptoms as increased anxiety, increased weakness and increased confusion. He feels she cannot safely be at home. The patient denies chest pain or shortness of breath at rest. She has had no cough. No abdominal pain. No nausea, vomiting or diarrhea. The patient has had no dysuria frequency. No fevers or chills. REVIEW OF SYSTEMS: 10 systems were reveiwed and are negative with the exception of the elements mentioned in the history of present illness. Past Medical/Surgical History: Includes hypertension, CVA, DVT Past surgical history: Hysterectomy Social history: The patient lives at home with her son Smoking Status: Never smoked Physical Exam: Vitals noted. O2 saturation 89% on room air. Patient's oxygen saturation improved on supplemental oxygen. GENERAL: Well-appearing, in no acute distress, alert. HEENT: Eyes normal to inspection, normal pharynx, no signs of dehydration. NECK: Normal, supple. RESPIRATORY: Clear to auscultation bilaterally, no rales, rhonchi or wheezing. CVS: Regular rate and rhythm, no rubs, murmurs, or gallops. ABDOMEN: Soft, nontender, nondistended, no organomegaly. BACK: Normal to inspection, no CVA tenderness. SKIN: Normal color, no rash, warm, dry. No pallor. See extremity exam EXTREMITIES: Mild bilateral pedal edema, no calf tenderness, no Homans sign or cords, no joint swelling. The patient's left anterior calf is erythematous. There is no significant warmth. It does not streak up the proximal leg. There is some subtle weeping. NEURO/PSYCH: Alert and oriented, normal mood and affect, normal motor sensory exam. No obvious cranial nerve deficit. Constitutional: Initial Vital Signs Temperature (C) 36.6 C 02/17/19 14:10 Heart Rate 89 02/17/19 14:10 Respiratory Rate 30 H 02/17/19 14:10 Blood Pressure 119/94 H 02/17/19 14:10 O2 Sat (%) 89 L 02/17/19 14:10 O2 Delivery Mode Nasal Cannula O2 (L/minute) 2 Allergies/Adverse Reactions: iodine Allergy (Verified 02/17/19 14:25) penicillin V potassium [From Pen-Vee K] Allergy (Verified 10/17/18 02:03) IVP DYE Allergy (Uncoded 10/17/18 02:03) Home Medications: Medication Instructions Recorded Aspirin [Aspirin 81mg (*)] 81 mg PO HS 10/17/18 Atorvastatin Calcium [Lipitor 20 20 mg PO HS 10/17/18 mg (*)] Cholecalciferol Vit D3 [Vitamin D3 1,000 units PO DAILY 10/17/18 (*)] Donepezil HCl [Aricept 5 MG (*)] 10 mg PO HS 10/17/18 Escitalopram Oxalate [Lexapro 10 5 mg PO HS 10/17/18 MG] Herbals/Supplements -Info Only 1 ea PO DAILY 10/17/18 Melatonin [Melatonin 3 MG (*)] 3 - 6 mg PO HS 10/17/18 Sennosides/Docusate Sodium 1 each PO DAILY PRN 10/17/18 [Senna-S Tablet] amLODIPine BESYLATE [Norvasc 10 mg 10 mg PO HS 10/17/18 (*)] Lisinopril [Zestril 10 mg (*)] 20 mg PO DAILY tab 10/21/18 Medical Decision Making - Diagnostics Imaging Results: Imaging Impressions Chest X-Ray 02/17/19 14:46 Impression: Poor inspiration. Suspect CHF. Cannot exclude underlying lower lobe pneumonia. ED Course/Re-evaluation: In the emergency department I discussed possible etiologies with the patient and son. I answered all her questions. IV was placed. Laboratory studies, EKG and chest x-ray were ordered. EKG shows normal sinus rhythm, normal rate, normal axis, prolonged QT. There are no ST or T-wave abnormalities. Patient's CBC was unremarkable. Troponin was 0.07. Chemistry panel was [place] [address]. Patient was given Lasix 40 mg IV. Chest x-ray: Please refer the dictated report. Patient has enlarged heart. Findings are consistent with CHF. Radiology cannot exclude lower lobe opacity. Based on [place] [address], no fever and normal white count I think this is more likely CHF than an underlying pneumonia. I discussed the case with Dr. Hilliard. She accepted the patient. Differential Diagnosis: My differential includes but is not limited to ACS, acute MA, CHF, pulmonary embolus, DVT, cellulitis, abscess, urinary tract infection, bacteremia, sepsis - Data Points Laboratory Results: Laboratory Results 02/17/19 14:30 02/17/19 14:30 02/17/19 02/17/19 02/17/19 14:35 14:30 14:30 WBC 7.29 10^3/uL 10^3/uL (3.80-9.50) RBC 4.48 10^6/uL 10^6/uL (4.18-5.33) Hgb 13.2 g/dL g/dL (12.6-16.3) Hct 41.4 % % (38.0-47.0) MCV 92.4 fL fL (81.5-99.8) MCH 29.5 pg pg (27.9-34.1) MCHC 31.9 g/dL L g/dL (32.4-36.7) RDW 14.1 % % (11.5-15.2) Plt Count 268 10^3/uL 10^3/uL (150-400) MPV 9.3 fL fL (8.7-11.7) Neut % (Auto) 72.6 % % (39.3-74.2) Lymph % (Auto) 16.6 % % (15.0-45.0) [place] % (Auto) 8.6 % % (4.5-13.0) Eos % (Auto) 1.4 % % (0.6-7.6) Baso % (Auto) 0.4 % % (0.3-1.7) Nucleat RBC Rel Count 0.0 % % (0.0-0.2) Absolute Neuts (auto) 5.29 10^3/uL 10^3/uL (1.70-6.50) Absolute Lymphs (auto) 1.21 10^3/uL 10^3/uL (1.00-3.00) Absolute Monos (auto) 0.63 10^3/uL 10^3/uL (0.30-0.80) Absolute Eos (auto) 0.10 10^3/uL 10^3/uL (0.03-0.40) Absolute Basos (auto) 0.03 10^3/uL 10^3/uL (0.02-0.10) Absolute Nucleated RBC 0.00 10^3/uL 10^3/uL (0-0.01) Immature Gran % 0.4 % % (0.0-1.1) Immature Gran # 0.03 10^3/uL 10^3/uL (0.00-0.10) Sodium 138 mEq/L mEq/L (135-145) Potassium 4.3 mEq/L mEq/L (3.5-5.2) Chloride 107 mEq/L mEq/L (97-110) Carbon Dioxide 24 mEq/l mEq/l (22-31) Anion Gap 7 mEq/L mEq/L (6-14) BUN 21 mg/dL mg/dL (7-23) Creatinine 1.0 mg/dL mg/dL (0.6-1.0) Estimated GFR 53 Glucose 99 mg/dL mg/dL (70-100) Calcium 8.6 mg/dL mg/dL (8.5-10.4) POC Troponin I 0.07 ng/mL ng/mL (0.00-0.08) NT-Pro-B Natriuret Pep 48080 pg/mL H pg/mL (0-450) Medications Given: Discontinued Medications Furosemide (Lasix Injection) 40 mg IVP EDNOW ONE Stop: 02/17/19 15:26 Last Admin: 02/17/19 15:26 Dose: 40 mg Point of Care Test Results: Chemistry 02/17/19 14:35 POC Troponin I 0.07 ng/mL ng/mL (0.00-0.08) Departure - Departure Disposition: [facility] Acute Clinical Impression: Hypoxia, Confusion, Weakness Acute CHF Qualifiers: Heart failure type: unspecified Qualified Code(s): I50.9 - Heart failure, unspecified Condition: Good Referrals: Cindy Graham MD [Primary Care Provider] - As per Instructions
[2019-02-17 14:54] LABS: PLATELET COUNT 268 10^3/uL (150-400)
[2019-02-17] MEDS ORDERED: FUROSEMIDE 40 MG/4 ML VIAL IVP ONE (15:25)
[2019-02-17] MEDS ORDERED: ONDANSETRON DISINTEGRATING 4 MG TAB PO PRN (15:54)
[2019-02-17] MEDS ORDERED: ACETAMINOPHEN 325 MG TAB PO PRN (15:54)
[2019-02-17] MEDS ORDERED: ONDANSETRON 4 MG/2 ML VIAL IVP PRN (15:54)
--- NOTE | 2019-02-17 17:12 | GHP ---
[f rep st] HISTORY AND PHYSICAL DATE OF ADMISSION: 02/17/2019 CHIEF COMPLAINTS: Increased confusion, leg swelling. HISTORY OF PRESENT ILLNESS: An 78-year-old female with dementia, moderate mitral regurgitation, history of CVAs, is here with her son with increased weakness and confusion. Says over the past week, she has been slipping and falling more often. She will slide off her bed onto the floor. She has not had loss of consciousness. He says she has been more anxious and "panting." He is unclear if she is having a hard time breathing or a panic attack. He has not noted nausea, vomiting, or diarrhea. She denies dysuria. She is sedentary and gets from the bed to the kitchen and bathroom, uses a walker. They called 9 -1-1 four days ago because she was so weak and could not get back into bed, so they assisted. She has not seen a PCP in 2 years. Denies fevers, chills, or sweats. No cough. No chest pain. When I asked, denies shortness of breath. In the ER, as noted, left leg was erythematous, consistent with cellulitis. Son had not noticed that. She was also noted to have BNP greater than 11,000, edema and volume overload on exam. REVIEW OF SYSTEMS: I completed a 10-point review of systems; negative, except as noted in HPI. PAST MEDICAL HISTORY: CVA, dementia, DVT/PE per son, hypertension, CKD, falls, mitral regurgitation. Echo October 2018, showed LVEF of 57%, LVH, moderate MR. Recent left radial/ulnar fracture November 2018. PAST SURGICAL HISTORY: Hysterectomy. SOCIAL HISTORY: Lives with her son. No alcohol, tobacco, or illicits. FAMILY HISTORY: Dad had an FL. ALLERGIES: Iodine, penicillin. HOME MEDICATIONS: Melatonin, Lexapro, Norvasc 10, lisinopril 10, Aricept 10, vitamin D3 2000 daily, atorvastatin 20, aspirin. PHYSICAL EXAMINATION: VITAL SIGNS: Temperature 36.6, blood pressure is 119/94 , heart rate is 80, respirations 30, now 24. 96% on 2 L. GENERAL: She is overweight. No acute distress. Mildly somnolent. HEENT: PERRLA. Moist mucous membranes. CV: Regular rate and rhythm. +2 lower extremity edema to the knees. JVD difficult to discern given obese neck. LUNGS: Decreased breath sounds at bases. ABDOMEN: Obese, soft, nontender. : No suprapubic tenderness skin left lower leg with erythema, area of soughed skin. NEURO: Two through 12 are intact. PSYCH: She is alert, answering appropriately ( baseline is alert and oriented x3). MUSCULOSKELETAL: Multiple bruises, upper back. LABS: WBC 7, hemoglobin 13, hematocrit 41, platelets 268. Sodium 138, potassium 4.3, chloride 107, carbon dioxide 22, creatinine 1, glucose 99, calcium 8.6. Troponin 0.07. BNP 11,200. Chest x-ray is personally reviewed by me. Blunted costophrenic angles, pulmonary edema. EKG personally reviewed by me. ST flattening throughout, similar to prior LVH. ASSESSMENT AND PLAN: 1. Volume overload: History of moderate mitral regurgitation. Normal ejection fraction in October 2018. Received Lasix in the emergency room. Troponin and EKG are nonischemic. We will repeat these. Monitor on telemetry. Hold off on echo given just completed in October. Daily weights. Fluid restriction. Monitor lytes. Cardiology consult in the morning. 2. Left leg cellulitis: "passes out" with PCN. Will dose doxycycline since no e /o sepsis 3. History of cerebrovascular accidents: She is using a walker. Continue aspirin and statin. 4. Dementia: Alert and oriented x2 per her son, but more confused. 5. Metabolic encephalopathy: Possibly cellulitis versus urinary tract infection. She is not the greatest historian. We will check a UA. 6. Falls: She slid down from bed to floor due to weakness. She denies loss of consciousness or other prodromal symptoms. PT/OT. Would benefit from SNF to not swallow deviations. 7. Hypertension: Home medications. 8. History of deep venous thrombosis/pulmonary embolism. No overt symptoms now. She had a V/Q scan in October that was negative. No contrast with iodine allergy. 9. Diet: Cardiac, low sodium, 1800 mL fluid restriction. 10. Deep venous thrombosis prophylaxis: Lovenox. 11. Leg swelling: U/S legs pending. V/Q scan negative 10/26 DISPOSITION: Inpatient admission given acute volume overload warranting IV Lasix, PT/OT. /[id number]/MODL MTDD
--- NOTE | 2019-02-17 18:43 | PDMN ---
Medical Necessity Medical necessity: [facility] Cardiology: 78 w/ increased weakness and confusion. Family states pt has had more recent falls lately and has been 'panting.' Eval reveals multi medical issues - volume overload, L leg cellulitis, poss UTI, metabolic encephalopathy. Anticipate>2MN for multi med issues and tx w/ cont tele monitoring, IV diuresis, PT/OT, IV antibx, O2 to keep sats >90%, fluid restriction, cardio consult. Hx dementia, mod mitral regurg, CVA, DVT/PE, HTN, CKD, falls w/ recent radial/ulnar fx.
--- NOTE | 2019-02-17 21:13 | CPEKG ---
Test Reason : OPEN Blood Pressure : / mmHG Vent. Rate : 081 BPM Atrial Rate : 082 BPM P-R Int : 145 ms QRS Dur : 094 ms QT Int : 469 ms P-R-T Axes : 051 013 080 degrees QTc Int : 545 ms Sinus rhythm Borderline T wave abnormalities Prolonged QT interval Confirmed by Lucia Beal ([id number]) on 02/17/2019 9:10:56 PM Referred By: Lucia Beal Confirmed By:Lucia Beal
[2019-02-17] MEDS: DOXYCYCLINE HYCLATE 100 MG CAP/TAB PO SCH (21:42)
[2019-02-17] MEDS: DONEPEZIL HCL 5 MG TAB PO SCH (21:42)
[2019-02-17] MEDS: ESCITALOPRAM OXALATE 10 MG TAB PO SCH (21:42)
[2019-02-17] MEDS: ATORVASTATIN CALCIUM 20 MG TAB PO SCH (21:42)
[2019-02-17] MEDS: MELATONIN 3 MG TAB PO SCH (21:42)
[2019-02-17] MEDS: ASPIRIN 81 MG CHEWABLE TAB PO SCH (21:42)
[2019-02-18] MEDS ORDERED: Herbals/Supplements -Info Only PO SCH (09:00)
[2019-02-18] MEDS: DOXYCYCLINE HYCLATE 100 MG CAP/TAB PO SCH (09:51)
[2019-02-18] MEDS: CHOLECALCIFEROL VIT D3 1,000 UNITS TAB PO SCH (09:51)
[2019-02-18] MEDS: FUROSEMIDE 40 MG/4 ML VIAL IVP SCH ×2 (09:52→15:08)
[2019-02-18] MEDS: ENOXAPARIN 40 MG/0.4 ML SYR SC SCH (09:53)
--- NOTE | 2019-02-18 12:14 | ASMTCMCOM ---
CM Note CM Note Notes: 02/18/2019 Case Management Note Discussed pt during rounds today. Pt admitted for SOB, UTI, celluliitis with a history of dementia. Met w/pt to discuss d/c needs. Pt son Cole present [phone]. Pt resides with Cole. Pt has recent stay in October at [facility] in [place]. PT/OT recommending SNF rehab. Cole and pt in agreement. Faxed referral. Discussed [facility] program. [facility] has hired [facility] to assist in the home. Phone call to Nevaeh [phone] with [facility] for assessment. Left vm. Case Management d/c poc: [facility] SNF rehab pending acceptance. Case Management to follow. Date Signed: 02/18/2019 12:13 PM Electronically Signed By:Lissette Gilliam RN
--- NOTE | 2019-02-18 15:06 | HOSPPROG ---
Hospitalist Progress Note Assessment/Plan: 78 yo F with MMI including prior CVA, dementia, diastolic heart failure admitted with acute on chronic diastolic CHF and LLE cellulitis # acute on chronic diastolic heart failure: with recent echo showing normal EF but currently volume overloaded, started on IV lasix and will continue for now, cardiology consult requested and pending, ecg reviewed, non ischemic # LLE cellulitis: very bright red c/w strep, started on doxy without improvement overnight, will start ancef and monitor, in setting of significant edema # metabolic encephalopathy: on presentation but now back at baseline, does have relatively advanced dementia # acute hypoxic respiratory failure: desaturations to the mid 80s on RA with associated increased wob, doing well on 2L, hx of PE and likely contribution of atelectasis and pulmonary edema though unable to r/o LLL PNA on last xray--no sxs of pna other than low o2, will repeat cxr in am # falls: apparently recurrent at home, accompanied by her son who is her caregiver, PT/OT involved, will likely require SNF # CVA: continue asa/statin # dementia: as above # DVT/PE: continue warfarin # FC # IP status, will require > 48 hours stay for eval/mgmt of above Patient new to my care. Old records reviewed and summarized as above. Further hx obtained from patients son present at bedside Subjective: no significant overnight events, patient states she feels 'fine', but son notes when she is off oxygen she is struggling to breathe and still weak Objective: Vital Signs Temp Pulse Resp BP Pulse Ox 37.0 C 83 18 127/61 H 95 02/18/19 12:00 02/18/19 12:00 02/18/19 12:00 02/18/19 12:00 02/18/19 12:00 Laboratory Results 02/18/19 04:10 02/17/19 02/18/19 02/19/19 05:59 05:59 05:59 Output Total 600 Balance -600 awake alert anicteric op clear rrr no mrg crackles at bases 1+ edema warm dry well perfused oriented x 2, poor memory - Time Spent With Patient Time Spent with Patient: greater than 35 minutes Time Spent with Patient: Greater than 35 minutes spent on this patients care, greater than 50% of time spent counseling, educating, and coordinating care regarding the above mentioned plan. ICD10 Worksheet Patient Problems: Problems Problem Status Onset chronic disease mgmt/transitional care Acute Falls frequently Acute UTI (urinary tract infection) Acute HTN (hypertension) Acute Alzheimer disease Acute Distal radius fracture, left Acute Hypoxia Acute Confusion Acute Weakness Acute Acute CHF Acute
[2019-02-18] MEDS: MELATONIN 3 MG TAB PO SCH (21:31)
[2019-02-18] MEDS: ESCITALOPRAM OXALATE 10 MG TAB PO SCH (21:31)
[2019-02-18] MEDS: ASPIRIN 81 MG CHEWABLE TAB PO SCH (21:31)
[2019-02-18] MEDS: ATORVASTATIN CALCIUM 20 MG TAB PO SCH (21:31)
[2019-02-18] MEDS: DONEPEZIL HCL 5 MG TAB PO SCH (21:31)
[2019-02-19 05:15] LABS: PLATELET COUNT 218 10^3/uL (150-400)
[2019-02-19] MEDS: FUROSEMIDE 40 MG/4 ML VIAL IVP SCH ×2 (08:39→14:21)
[2019-02-19] MEDS: ENOXAPARIN 40 MG/0.4 ML SYR SC SCH (08:40)
[2019-02-19] MEDS: CHOLECALCIFEROL VIT D3 1,000 UNITS TAB PO SCH (08:40)
[2019-02-19] MEDS: METOPROLOL TARTRATE 25 MG TAB PO SCH ×2 (11:38→20:52)
--- NOTE | 2019-02-19 12:03 | GCON ---
[f rep st] CONSULTATION DATE OF CONSULTATION: 02/19/2019 HISTORY OF PRESENT ILLNESS: The patient is an 78-year-old female with a history of hypertension and dementia who was admitted with increased weakness and confusion. The majority of information was obtained from prior records because of her dementia. It was noted that she was having increased panting with exertion, as well as lower extremity edema. On admission, she was found to be in diastolic heart failure and have lower extremity cellulitis. Her BNP is elevated at 11,200. Her oxygen saturation was in the 80s on admission. She has been treated with IV Lasix with an improvement in her oxygen saturation and edema. She was also found to have minimally elevated troponins, peaking at 0.054. A lower extremity ultrasound was negative for DVT. A chest x-ray showed evidence of congestive heart failure and possible pneumonia. Her initial EKG shows diffuse T-wave flattening without any acute changes. She had an echo in October 2018, which showed preserved LV function with ejection fraction of 57%. She had mild diastolic dysfunction and mild left ventricular hypertrophy. There was also evidence of [id number] mitral regurgitation. The patient has noted multiple falls over the past week. She is minimally active and ambulates in the house with a walker. Here in the hospital, she has had trouble with standing during physical therapy. PAST MEDICAL HISTORY: CVA, dementia, DVT, PE, hypertension. FAMILY HISTORY: Noncontributory. SOCIAL HISTORY: She currently lives with her son. He is the power of county attorney. She denies any ongoing tobacco use. She is lives a sedentary lifestyle, but was able to ambulate around the house with a walker. HOME MEDICATIONS: Lexapro 10 mg at bedtime, Aricept 5 mg at bedtime, Lipitor 20 mg at bedtime, amlodipine 10 mg daily, aspirin 81 mg daily, lisinopril 10 mg daily, melatonin 3 mg at bedtime, vitamin D3, herbal supplement. ALLERGIES: Iodine, penicillin, IVP dye. REVIEW OF SYSTEMS: A 10-point review of systems is negative except for what is stated in the H and P. PHYSICAL EXAMINATION: GENERAL: The patient appears in no acute distress. VITALS: Blood pressure 170/82, heart rate 79, oxygen saturation of 96% on 3 L, afebrile. CAROTID: Positive JVD without any bruits. LUNGS: Poor inspiratory effort, making it difficult to assess. She does appear to have poor lung capacity. CARDIAC: Regular rate and rhythm, without any significant murmurs, rubs, or gallops appreciated. ABDOMEN: Soft, nontender, nondistended. EXTREMITIES: Palpable pulses bilaterally with 3+ pitting edema on mid calf and down. There is also evidence of cellulitis of the left leg. NEUROLOGIC: Dementia present. She is oriented x2 to place and person. PSYCHIATRIC: Mood and affect appropriate. SKIN: Cellulitis identified in the left leg. She also has kind of diffuse bruising, likely related to frequent falls. LABORATORY: WBC 6.19, hemoglobin 12.4, hematocrit 39.4. Sodium 138, potassium 3.8, chloride 104, bicarb 27, BUN 28, creatinine 1.2. Calcium 8.1, troponin 0.054, 0.045. BNP 11,200. DIAGNOSTIC STUDIES: Lower extremity ultrasound was negative for DVT. Chest x- ray suggests congestive heart failure with possible pneumonia. Her EKG shows normal sinus rhythm with a heart rate of 81 with diffuse T-wave flattening. She has been monitored on telemetry and has remained in normal sinus rhythm with occasional PACs and PVCs. She also had T-wave inversion with initial admission. ASSESSMENT: The patient is an 78-year-old female with a history of dementia and hypertension, who presents with diastolic congestive heart failure and cellulitis. PLAN: 1. Diastolic heart failure with a BNP of 11,200. Continue medical management with IV Lasix. 2. Minimally elevated troponin being at 0.054. This is likely related to #1. She lives a sedentary lifestyle and denies any symptoms of angina. Recommend medical management given her history of dementia and lack of symptoms. Her risk factors should be treated aggressively. Continue Lipitor and Aspirin. She is hypertensive and therefore, will begin metoprolol 25 mg twice daily. She did have T wave inversion on tele with initial admission. Will repeat a EKG today. 3. Hypertension. Norvasc and lisinopril are currently on hold. We will begin metoprolol 25 mg b.i.d. Continue to monitor. 4. History of chronic renal failure with a creatinine of 1.2. Lisinopril is on hold. Continue to monitor in the setting of diuretic therapy. 5. Cellulitis- per hospitalists. 6. Power of county attorney, Cole. I have put out a call to him and awaiting return to get additional information. The patient was discussed with Dr. Buckley. /[id number]/MODL MTDD
--- NOTE | 2019-02-19 15:39 | HOSPPROG ---
Hospitalist Progress Note Assessment/Plan: 78 yo F with MMI including prior CVA, dementia, diastolic heart failure admitted with acute on chronic diastolic CHF and LLE cellulitis # acute on chronic diastolic heart failure: with recent echo showing normal EF but currently volume overloaded, started on IV lasix and will continue for now, appreciate cardiology consult # LLE cellulitis: improving on ancef, will continue to monitor, in setting of significant edema and recommending elevation of leg # metabolic encephalopathy: on presentation but now back at baseline, does have relatively advanced dementia # acute hypoxic respiratory failure: desaturations to the mid 80s on RA with associated increased wob, doing well on 2L, hx of PE and likely contribution of atelectasis and pulmonary edema though unable to r/o LLL PNA on last xray--no sxs of pna other than low o2, will repeat cxr in am # falls: apparently recurrent at home, accompanied by her son who is her caregiver, PT/OT involved, will likely require SNF # CVA: continue asa/statin # dementia: as above # DVT/PE: continue warfarin # FC # IP status, will require > 48 hours stay for eval/mgmt of above Further hx obtained from patients son present at bedside Subjective: no significant overnight events, patient notes she is doing well currently, son feels her leg looks a bit better Objective: Vital Signs Temp Pulse Resp BP Pulse Ox 37.2 C 76 20 143/74 H 93 02/19/19 11:33 02/19/19 11:33 02/19/19 11:33 02/19/19 11:33 02/19/19 11:33 Laboratory Results 02/19/19 03:52 02/19/19 03:52 02/18/19 02/19/19 02/20/19 05:59 05:59 05:59 Intake Total 1750 Output Total 600 2200 Balance -600 -450 awake alert anicteric op clear rrr no mrg crackles at bases 1+ edema warm dry well perfused oriented x 2, poor memory - Time Spent With Patient Time Spent with Patient: greater than 35 minutes Time Spent with Patient: Greater than 35 minutes spent on this patients care, greater than 50% of time spent counseling, educating, and coordinating care regarding the above mentioned plan. ICD10 Worksheet Patient Problems: Problems Problem Status Onset Acute CHF Acute Confusion Acute Hypoxia Acute Weakness Acute chronic disease mgmt/transitional care Acute Alzheimer disease Acute Distal radius fracture, left Acute Falls frequently Acute HTN (hypertension) Acute UTI (urinary tract infection) Acute
[2019-02-19] MEDS: MELATONIN 3 MG TAB PO SCH (20:52)
[2019-02-19] MEDS: ESCITALOPRAM OXALATE 10 MG TAB PO SCH (20:52)
[2019-02-19] MEDS: ASPIRIN 81 MG CHEWABLE TAB PO SCH (20:53)
[2019-02-19] MEDS: ATORVASTATIN CALCIUM 20 MG TAB PO SCH (20:53)
[2019-02-19] MEDS: DONEPEZIL HCL 5 MG TAB PO SCH (20:54)
[2019-02-20 04:33] LABS: PLATELET COUNT 199 10^3/uL (150-400)
[2019-02-20] MEDS: ENOXAPARIN 40 MG/0.4 ML SYR SC SCH (08:53)
[2019-02-20] MEDS: FUROSEMIDE 40 MG/4 ML VIAL IVP SCH ×2 (08:53→14:17)
[2019-02-20] MEDS: CHOLECALCIFEROL VIT D3 1,000 UNITS TAB PO SCH (08:53)
[2019-02-20] MEDS: METOPROLOL TARTRATE 25 MG TAB PO SCH ×2 (08:58→21:12)
[2019-02-20] MEDS ORDERED: POTASSIUM CL 20 MEQ TAB PO ONE (11:15)
--- NOTE | 2019-02-20 11:27 | ASMTCMCOM ---
CM Note CM Note Notes: 02/20/2019 Case Management Note Discussed pt during rounds this morning. Per RN pt has significant lower extremity edema; diuresis continues. Phone call from Nora with [facility] accepting pt. Faxed updates to [facility]. Case Management d/c poc: [facility] SNF rehab Case Management to follow. Date Signed: 02/20/2019 11:27 AM Electronically Signed By:Lissette Gilliam RN
--- NOTE | 2019-02-20 14:17 | PDCARPN ---
Cardiology Progress Note Chief Complaint: N/A Assessment/Plan: Assessment: The patient is a 78 y/o F with a history of dementia and HTN admitted with recurrent falls and increased confusion. She was found to be in DCHF with a BNP of 11,000 and minimally elevated troponins. She is responding to IV Lasix. She has no complaints today. Plan: 1. DCHF- Continue diuresis with IV Lasix 2. Troponin bump- EKG show anterior and lateral T wave inversion. She denies any symptoms suggestive of angina and her troponin has remained flat. Continue medical management with Metoprolol, Aspirin, and Lipitor. 3. Dementia- 4. HTN- well controlled on her current medical regimen. 5. SVT- short run of SVT, asymptomatic. Continue Metoprolol. 02/20/19 14:20 Subjective: She denies any CP or SOB. She is confused. Objective: Vital Signs (8 Hrs) Temp Pulse Resp BP Pulse Ox 02/20/19 11:11 36.6 C 64 15 112/54 L 100 02/20/19 08:52 63 20 126/62 H 02/20/19 08:00 65 99/42 L 02/20/19 07:30 36.9 C 57 L 15 96/32 L 95 Intake/Output (24 Hrs) 02/19/19 02/20/19 02/21/19 05:59 05:59 05:59 Intake Total 1750 1040 Output Total 2200 1950 Balance -450 -910 Intake: Oral (ml) 1750 920 IV Infused (ml) 120 ceFAZolin 1 GM/DEXTROSE 120 50 ml @ 200 mls/hr IV Q8HRS [facility] Rx#:[id number] Output: Urine (ml) 2200 1950 Catheter 2200 1950 Other: Weight 81 kg Output Comment Catheter straight cath Number of Voids Incontinence 1 1 Result Diagrams: 02/20/19 04:18 02/20/19 04:18 Cardiac Labs: Cardiac Lab Results (72 Hrs) 02/19/19 02/18/19 02/17/19 14:46 04:10 20:06 Troponin I 0.043 H 0.045 H 0.054 H Telemetry: NSR with occasional PVC's. 1 short run of SVT - Physical Exam Constitutional: no apparent distress Cardiovascular: regular rate and rhythm, no murmurs Respiratory: inspiratory crackles Skin: other (3 plus edema) ICD10 Worksheet Patient Problems: Problems Problem Status Onset Acute CHF Acute Confusion Acute Hypoxia Acute Weakness Acute chronic disease mgmt/transitional care Acute Alzheimer disease Acute Distal radius fracture, left Acute Falls frequently Acute HTN (hypertension) Acute UTI (urinary tract infection) Acute
--- NOTE | 2019-02-20 15:16 | HOSPPROG ---
Hospitalist Progress Note Assessment/Plan: 78 yo F with MMI including prior CVA, dementia, diastolic heart failure admitted with acute on chronic diastolic CHF and LLE cellulitis acute on chronic diastolic heart failure: with recent echo showing normal EF but currently volume overloaded, started on IV lasix and will continue for now, appreciate cardiology consult LLE cellulitis: improving on ancef, will continue to monitor, in setting of significant edema and recommending elevation of leg metabolic encephalopathy: on presentation but now back at baseline, does have relatively advanced dementia alert when I se her acute hypoxic respiratory failure: desaturations to the mid 80s on RA with associated increased wob, doing well on 2L, hx of PE and likely contribution of atelectasis and pulmonary edema though unable to r/o LLL PNA on last xray--no sxs of pna other than low o2, will repeat cxr in am falls: apparently recurrent at home, accompanied by her son who is her caregiver , PT/OT involved, will likely require SNF CVA: continue asa/statin dementia: as above DVT/PE: continue warfarin FC IP status, will require > 48 hours stay for eval/mgmt of above Further hx obtained from patients son present at bedside Subjective: case d/w loretta porter, cardiology PA Objective: Vital Signs Temp Pulse Resp BP Pulse Ox 37.1 C 72 20 134/63 H 97 02/20/19 15:01 02/20/19 15:01 02/20/19 15:01 02/20/19 15:01 02/20/19 15:01 Laboratory Results 02/20/19 04:18 02/20/19 04:18 02/19/19 02/20/19 02/21/19 05:59 05:59 05:59 Intake Total 1750 1040 Output Total 2200 1950 Balance -450 -910 - Physical Exam Constitutional: no apparent distress, appears nourished Eyes: PERRL, anicteric sclera Ears, Nose, Mouth, Throat: moist mucous membranes, hearing normal Cardiovascular: regular rate and rhythym, systolic murmur Respiratory: no respiratory distress, no rales or rhonchi Gastrointestinal: normoactive bowel sounds, soft, non-tender abdomen Genitourinary: No sy in urethra Skin: warm, normal color Musculoskeletal: No full muscle strength Neurologic: No AAOx3 ICD10 Worksheet Patient Problems: Problems Problem Status Onset Acute CHF Acute Confusion Acute Hypoxia Acute Weakness Acute chronic disease mgmt/transitional care Acute Alzheimer disease Acute Distal radius fracture, left Acute Falls frequently Acute HTN (hypertension) Acute UTI (urinary tract infection) Acute
[2019-02-20] MEDS: ATORVASTATIN CALCIUM 20 MG TAB PO SCH (21:12)
[2019-02-20] MEDS: DONEPEZIL HCL 5 MG TAB PO SCH (21:12)
[2019-02-20] MEDS: MELATONIN 3 MG TAB PO SCH (21:12)
[2019-02-20] MEDS: ESCITALOPRAM OXALATE 10 MG TAB PO SCH (21:12)
[2019-02-20] MEDS: ASPIRIN 81 MG CHEWABLE TAB PO SCH (21:12)
[2019-02-21] MEDS: ENOXAPARIN 40 MG/0.4 ML SYR SC SCH (08:30)
[2019-02-21] MEDS: FUROSEMIDE 40 MG/4 ML VIAL IVP SCH ×2 (08:31→14:43)
[2019-02-21] MEDS: METOPROLOL TARTRATE 25 MG TAB PO SCH ×2 (08:31→20:00)
[2019-02-21] MEDS: CHOLECALCIFEROL VIT D3 1,000 UNITS TAB PO SCH (08:31)
--- NOTE | 2019-02-21 11:46 | PDCARPN ---
Cardiology Progress Note Chief Complaint: N/A Assessment/Plan: Assessment: The patient is a 78 y/o F with a history of dementia and HTN admitted with recurrent falls and increased confusion. She was found to be in DCHF with a BNP of 11,000 and minimally elevated troponins. She is responding to IV Lasix. She has no complaints today. Plan: 1. DCHF- Continue diuresis with IV Lasix. O2 requirements have declined and her edema has improved. She is approaching baseline. May need one more day of Lasix IV. 2. Troponin bump- EKG show anterior and lateral T wave inversion. She denies any symptoms suggestive of angina and her troponin has remained flat. Continue medical management with Metoprolol, Aspirin, and Lipitor. Options discussed with her son who agrees with med management. 3. Dementia-mod to severe 4. HTN- well controlled on her current medical regimen. 5. SVT- short run of SVT, asymptomatic. Continue Metoprolol. 6. frequent falls-It is possible she was over medicated while on Norvasc 10 and Lisinopril 10 at home. These have been d/c and she is being well managed with only Metoprolol 25mg BID. Agree with palliative care consult. 02/21/19 11:46 Subjective: She is confused but denies any CP or SOB. Objective: Vital Signs (8 Hrs) Temp Pulse Resp BP Pulse Ox 02/21/19 11:17 36.9 C 68 18 125/60 H 96 02/21/19 07:22 36.9 C 70 20 152/78 H 97 Intake/Output (24 Hrs) 02/20/19 02/21/19 02/22/19 05:59 05:59 05:59 Intake Total 1040 620 Output Total 1950 1775 Balance -910 -1155 Intake: Oral (ml) 920 450 IV Infused (ml) 120 170 ceFAZolin 1 GM/DEXTROSE 120 170 50 ml @ 200 mls/hr IV Q8HRS [facility] Rx#:[id number] Output: Urine (ml) 1949 1774 Catheter 1950 1200 Incontinence 575 Other: Weight 81 kg 83.3 kg 81.9 kg Intake Quantity Yes Sufficient Number of Voids Incontinence 1 Result Diagrams: 02/20/19 04:18 02/21/19 03:54 Cardiac Labs: Cardiac Lab Results (72 Hrs) 02/19/19 14:46 Troponin I 0.043 H Telemetry: NSR - Physical Exam Constitutional: no apparent distress Cardiovascular: regular rate and rhythm, no murmurs, no rubs, no gallops Respiratory: clear to auscultate bilat, no crackles, no wheezes Skin: other (1 plus edema, improved.) ICD10 Worksheet Patient Problems: Problems Problem Status Onset Acute CHF Acute Confusion Acute Hypoxia Acute Weakness Acute chronic disease mgmt/transitional care Acute Alzheimer disease Acute Distal radius fracture, left Acute Falls frequently Acute HTN (hypertension) Acute UTI (urinary tract infection) Acute
[2019-02-21] MEDS ORDERED: METOLAZONE 5 MG TAB PO ONE (11:47)
--- NOTE | 2019-02-21 11:47 | HOSPPROG ---
Hospitalist Progress Note Assessment/Plan: 78 yo F with MMI including prior CVA, dementia, diastolic heart failure admitted with acute on chronic diastolic CHF and LLE cellulitis acute on chronic diastolic heart failure: with recent echo showing normal EF but currently volume overloaded neg 3 l, but still edmeatous continue IV lasix dose zaroxoyln prior to 3 p lasix JOSE's LLE cellulitis: improving on ancef, will continue to monitor, in setting of significant edema and recommending elevation of leg day 3/7 abx poor self care: bathed nursing has removed UE s[plint- no skin breakdown under metabolic encephalopathy: on presentation but now back at baseline, does have relatively advanced dementia alert when I se her acute hypoxic respiratory failure: desaturations to the mid 80s on RA with associated increased wob, doing well on 2L, hx of PE and likely contribution of atelectasis and pulmonary edema though unable to r/o LLL PNA on last xray--no sxs of pna other than low o2, will repeat cxr in am falls: apparently recurrent at home, accompanied by her son who is her caregiver , PT/OT involved, will likely require SNF CVA: continue asa/statin dementia: as above DVT/PE: continue warfarin FC IP status, will require > 48 hours stay for eval/mgmt of above Further hx obtained from patients son present at bedside Subjective: alert but confused. diuresing well by I/O's Objective: Vital Signs Temp Pulse Resp BP Pulse Ox 36.9 C 68 18 125/60 H 96 02/21/19 11:17 02/21/19 11:17 02/21/19 11:17 02/21/19 11:17 02/21/19 11:17 Laboratory Results 02/20/19 04:18 02/21/19 03:54 02/20/19 02/21/19 02/22/19 05:59 05:59 05:59 Intake Total 1040 620 Output Total 3245 6592 Balance -910 -1155 ICD10 Worksheet Patient Problems: Problems Problem Status Onset Acute CHF Acute Confusion Acute Hypoxia Acute Weakness Acute chronic disease mgmt/transitional care Acute Alzheimer disease Acute Distal radius fracture, left Acute Falls frequently Acute HTN (hypertension) Acute UTI (urinary tract infection) Acute
[2019-02-21] MEDS: POLYETHYLENE GLYCOL 3350 17 GM PKT PO SCH ×2 (12:11→19:49)
[2019-02-21] MEDS: POTASSIUM CL 20 MEQ TAB PO SCH (12:11)
--- NOTE | 2019-02-21 14:40 | ASMTCMCOM ---
CM Note CM Note Notes: Patient plan of care reviewed in am rounds. Manjit currently resides with her son but has been falling. Will needs SNF rehab but also palliative care referral to help establish goals of care. Plan [facility] with palliative care via [facility]. Plan: As above Date Signed: 02/21/2019 02:40 PM Electronically Signed By:Diane Sanchez RN
[2019-02-21] MEDS: MELATONIN 3 MG TAB PO SCH (20:01)
[2019-02-21] MEDS: ESCITALOPRAM OXALATE 10 MG TAB PO SCH (20:01)
[2019-02-21] MEDS: DONEPEZIL HCL 5 MG TAB PO SCH (20:01)
[2019-02-21] MEDS: ATORVASTATIN CALCIUM 20 MG TAB PO SCH (20:01)
[2019-02-21] MEDS: ASPIRIN 81 MG CHEWABLE TAB PO SCH (20:01)
[2019-02-22] MEDS: FUROSEMIDE 40 MG/4 ML VIAL IVP SCH ×2 (08:40→15:25)
[2019-02-22] MEDS: POLYETHYLENE GLYCOL 3350 17 GM PKT PO SCH (08:40)
[2019-02-22] MEDS: CHOLECALCIFEROL VIT D3 1,000 UNITS TAB PO SCH (08:43)
[2019-02-22] MEDS: METOPROLOL TARTRATE 25 MG TAB PO SCH (08:44)
[2019-02-22] MEDS: ENOXAPARIN 40 MG/0.4 ML SYR SC SCH (08:44)
[2019-02-22] MEDS: POTASSIUM CL 20 MEQ TAB PO SCH (08:44)
--- NOTE | 2019-02-22 16:11 | HOSPPROG ---
Hospitalist Progress Note Objective: Vital Signs Temp Pulse Resp BP Pulse Ox 37.0 C 69 18 168/88 H 95 02/22/19 15:15 02/22/19 15:15 02/22/19 15:15 02/22/19 15:15 02/22/19 15:15 ICD10 Worksheet Patient Problems: Problems Problem Status Onset Acute CHF Acute Confusion Acute Hypoxia Acute Weakness Acute chronic disease mgmt/transitional care Acute Alzheimer disease Acute Distal radius fracture, left Acute Falls frequently Acute HTN (hypertension) Acute UTI (urinary tract infection) Acute
--- NOTE | 2019-02-22 16:15 | HOSPPROG ---
Hospitalist Progress Note Assessment/Plan: * Acute on chronic diastolic CHF exacerbation -continue IV lasix -remains volume overload with ongoing pulmonary edema * LLE cellulitis -change to PO keflex * Dementia - advanced * Troponin elevation -med mgmt only per cardiology * ARF -hold Lasix this afternoon, may need to slow down diuresis * Metabolic encephalopathy - resolved -now back to baseline mental status * Acute respiratory failure - hypoxic due to pulmonary edema -still 82% Room Air today * CVA -ASA/statin * HTN -resume amlodipine -consider resume ACEI when creatinine better Subjective: no new complaints. Objective: Vital Signs Temp Pulse Resp BP Pulse Ox 37.0 C 69 18 168/88 H 95 02/22/19 15:15 02/22/19 15:15 02/22/19 15:15 02/22/19 15:15 02/22/19 15:15 Laboratory Results 02/20/19 04:18 02/22/19 11:55 02/21/19 02/22/19 02/23/19 05:59 05:59 05:59 Intake Total 620 1310 410 Output Total 1775 2460 1500 Balance -1155 -1150 -1090 Old chart reviewed - had ECHO in Oct - CXR viewed, my personal interpretation is - CHF - Physical Exam Constitutional: no apparent distress, appears nourished, not in pain Cardiovascular: regular rate and rhythym, no murmur, rub, or gallop, edema ( still edematous to waist) Respiratory: no respiratory distress, inspiratory crackles Gastrointestinal: normoactive bowel sounds, soft, non-tender abdomen, no palpable masses Skin: no rashes or abrasions, no fluctuance, no induration Psychiatric: interacting appropriately, poor insight, poor judgement, poor memory ICD10 Worksheet Patient Problems: Problems Problem Status Onset Acute CHF Acute Confusion Acute Hypoxia Acute Weakness Acute chronic disease mgmt/transitional care Acute Alzheimer disease Acute Distal radius fracture, left Acute Falls frequently Acute HTN (hypertension) Acute UTI (urinary tract infection) Acute
[2019-02-22] MEDS: CEPHALEXIN 500 MG CAP PO SCH (17:58)
[2019-02-23] MEDS: CEPHALEXIN 500 MG CAP PO SCH ×5 (00:01→23:17)
[2019-02-23] MEDS: ESCITALOPRAM OXALATE 10 MG TAB PO SCH ×2 (00:03→21:04)
[2019-02-23] MEDS: MELATONIN 3 MG TAB PO SCH ×2 (00:04→21:04)
[2019-02-23] MEDS: ATORVASTATIN CALCIUM 20 MG TAB PO SCH ×2 (00:04→21:04)
[2019-02-23] MEDS: ASPIRIN 81 MG CHEWABLE TAB PO SCH ×2 (00:05→21:04)
[2019-02-23] MEDS: METOPROLOL TARTRATE 25 MG TAB PO SCH ×3 (00:05→21:04)
[2019-02-23] MEDS: DONEPEZIL HCL 5 MG TAB PO SCH ×2 (00:06→21:04)
[2019-02-23] MEDS: FUROSEMIDE 40 MG/4 ML VIAL IVP SCH ×2 (10:28→14:58)
[2019-02-23] MEDS: ENOXAPARIN 40 MG/0.4 ML SYR SC SCH (10:31)
[2019-02-23] MEDS: CHOLECALCIFEROL VIT D3 1,000 UNITS TAB PO SCH (10:31)
[2019-02-23] MEDS: POLYETHYLENE GLYCOL 3350 17 GM PKT PO SCH (10:32)
--- NOTE | 2019-02-23 14:52 | ASMTCMCOM ---
CM Note CM Note Notes: Pt care discussed in rounds with Dr. Funez, BRANDON, RN, pt and her son,Ted. Dr Funez answered questions about treatment and discharge planning. Plan is for pt to still go to [facility] once medically ready but continues to diurese. CM submit updates to [facility]. CM to follow. Plan: [facility] once medically ready. Date Signed: 02/23/2019 02:51 PM Electronically Signed By:SALVADOR Corea
--- NOTE | 2019-02-23 16:23 | HOSPPROG ---
Hospitalist Progress Note Assessment/Plan: * Acute on chronic diastolic CHF exacerbation -continue IV lasix -remains volume overload with ongoing pulmonary edema * LLE cellulitis -change to PO keflex * Dementia - advanced * Troponin elevation -med mgmt only per cardiology * ARF -improved, continue diuresis * Metabolic encephalopathy - resolved -now back to baseline mental status * Acute respiratory failure - hypoxic due to pulmonary edema * CVA -ASA/statin * HTN -resume amlodipine -consider resume ACEI when creatinine better Subjective: no new complaints. Objective: Vital Signs Temp Pulse Resp BP Pulse Ox 36.8 C 66 20 139/73 H 92 02/23/19 15:33 02/23/19 15:33 02/23/19 15:33 02/23/19 15:33 02/23/19 15:33 Laboratory Results 02/20/19 04:18 02/23/19 03:44 02/22/19 02/23/19 02/24/19 05:59 05:59 05:59 Intake Total 1310 1160 520 Output Total 2460 2550 1100 Balance -1150 -1390 -580 d/w cardiology loretta melo for cardiology to sign off tele reviewed - NSR - Physical Exam Constitutional: no apparent distress, appears nourished, not in pain Cardiovascular: regular rate and rhythym, no murmur, rub, or gallop, edema (to sacrum) Respiratory: no respiratory distress, no rales or rhonchi, clear to auscultation Gastrointestinal: normoactive bowel sounds, soft, non-tender abdomen, no palpable masses Skin: no fluctuance, no induration, erythema (area of cellulitis on leg improving) Neurologic: sensation intact bilaterally Psychiatric: interacting appropriately, poor insight, poor judgement, poor memory ICD10 Worksheet Patient Problems: Problems Problem Status Onset chronic disease mgmt/transitional care Acute Falls frequently Acute UTI (urinary tract infection) Acute HTN (hypertension) Acute Alzheimer disease Acute Distal radius fracture, left Acute Hypoxia Acute Confusion Acute Weakness Acute Acute CHF Acute
[2019-02-24] MEDS: CEPHALEXIN 500 MG CAP PO SCH ×3 (06:08→17:21)
[2019-02-24] MEDS: FUROSEMIDE 40 MG/4 ML VIAL IVP SCH ×2 (08:20→14:34)
[2019-02-24] MEDS: ENOXAPARIN 40 MG/0.4 ML SYR SC SCH (08:21)
[2019-02-24] MEDS: POLYETHYLENE GLYCOL 3350 17 GM PKT PO SCH (08:21)
[2019-02-24] MEDS: CHOLECALCIFEROL VIT D3 1,000 UNITS TAB PO SCH (08:21)
[2019-02-24] MEDS: METOPROLOL TARTRATE 25 MG TAB PO SCH ×2 (08:21→20:03)
--- NOTE | 2019-02-24 11:06 | PDCARPN ---
Cardiology Progress Note Chief Complaint: SOB Assessment/Plan: Assessment: Charisse is a 78 y/o F with a history of recent falls, dementia, and HTN. On admit echo showed DCHF, and her BNP was 11,000. She had a mildly elevated troponin, and D-Dimer. She has responded well to IV Lasix. She feels good today and has no complaints. Plan: 1. DCHF- Continue IV Lasix for diuresis. Closely monitor Creatinine. 2. Troponin bump- EKG showed anterior and lateral T wave inversion on admit. She denies chest pain, and her troponin has remained flat. Continue medical management with Metoprolol, Aspirin, and Lipitor. Options were discussed with her son who agrees with med management. She is designated PALLITIVE CARE. 3. Dementia-mod to severe 4. HTN- well controlled on her current medical regimen. 5. SVT- short run of asymptomatic, asymptomatic. Continues on Metoprolol for management. 6. FALLs---She was possibly over medicated with both Norvasc 10 and Lisinopril 10 at home. These were d/c on admit. Norvasc has been resumed. She is well managed on Norvasc and Metoprolol 25mg BID. Now PALLITIVE CARE. Plan: Will sign off. Call us if further cardiac concerns. 02/24/19 10:52 02/24/19 11:14 Reviewed/Discussed With: hospitalist, multidisciplinary team Time Spent with Patient: greater than 25 minutes Time Spent with Patient: Greater than 25 minutes spent on this patients care, greater than 50% of time spent counseling, educating, and coordinating care regarding the above mentioned plan. Objective: Vital Signs (8 Hrs) Temp Pulse Resp BP Pulse Ox 02/24/19 07:50 64 02/24/19 07:17 36.7 C 64 18 134/69 H 93 02/24/19 03:58 36.6 C 62 20 138/74 H 94 Intake/Output (24 Hrs) 02/23/19 02/24/19 02/25/19 05:59 05:59 05:59 Intake Total 1160 990 Output Total 2550 2500 Balance -1390 -1510 Intake: Oral (ml) 1110 990 IV Infused (ml) 50 ceFAZolin 1 GM/DEXTROSE 50 50 ml @ 200 mls/hr IV Q8HRS [facility] Rx#:[id number] Output: Urine (ml) 2550 2500 Catheter 2550 1700 Incontinence 800 Other: Weight 77.8 kg 76.1 kg Output Comment Catheter female external catheter Number of Voids Catheter 1 Incontinence 1 1 Number of Stools Incontinence 1 Result Diagrams: 02/20/19 04:18 02/24/19 04:00 - Physical Exam Cardiovascular: regular rate and rhythm, no murmurs, no rubs, no gallops Respiratory: clear to auscultate bilat, no crackles, no wheezes Skin: warm, no edema Neurologic: other (oriented) Psychiatric: cooperative, not anxious ICD10 Worksheet Patient Problems: Problems Problem Status Onset Acute CHF Acute Confusion Acute Hypoxia Acute Weakness Acute chronic disease mgmt/transitional care Acute Alzheimer disease Acute Distal radius fracture, left Acute Falls frequently Acute HTN (hypertension) Acute UTI (urinary tract infection) Acute
--- NOTE | 2019-02-24 13:41 | CPEKG ---
Test Reason : OPEN Blood Pressure : / mmHG Vent. Rate : 074 BPM Atrial Rate : 075 BPM P-R Int : 149 ms QRS Dur : 093 ms QT Int : 539 ms P-R-T Axes : 042 -03 160 degrees QTc Int : 599 ms Sinus rhythm lateral T wave inversion Confirmed by Tom Hurtado ([id number]) on 02/24/2019 1:41:15 PM Referred By: Evangelina Hilliard Confirmed By:Tom Hurtado
[2019-02-24] MEDS ORDERED: amLODIPine BESYLATE 5 MG TAB PO SCH (16:47)
--- NOTE | 2019-02-24 16:48 | HOSPPROG ---
Hospitalist Progress Note Assessment/Plan: * Acute on chronic diastolic CHF exacerbation -continue IV lasix -remains volume overload with ongoing pulmonary edema * LLE cellulitis -change to PO keflex * Dementia - advanced * Troponin elevation -med mgmt only per cardiology * ARF -improved, continue diuresis * Metabolic encephalopathy - resolved -now back to baseline mental status * Acute respiratory failure - hypoxic due to pulmonary edema * CVA -ASA/statin * HTN -resume amlodipine at lower dose -consider resume ACEI when creatinine better Subjective: Doing well Objective: Vital Signs Temp Pulse Resp BP Pulse Ox 37.2 C 62 14 131/62 H 94 02/24/19 15:37 02/24/19 15:37 02/24/19 15:37 02/24/19 15:37 02/24/19 15:37 Laboratory Results 02/20/19 04:18 02/24/19 04:00 02/23/19 02/24/19 02/25/19 05:59 05:59 05:59 Intake Total 1160 990 200 Output Total 2550 2500 Balance -1390 -1510 200 - Physical Exam Constitutional: no apparent distress, appears nourished, not in pain Cardiovascular: regular rate and rhythym, no murmur, rub, or gallop, edema ( improving) Respiratory: no respiratory distress, no rales or rhonchi, clear to auscultation Gastrointestinal: normoactive bowel sounds, soft, non-tender abdomen, no palpable masses Skin: no rashes or abrasions, no fluctuance, no induration Neurologic: sensation intact bilaterally, No AAOx3 Psychiatric: interacting appropriately, encephalopathic, poor insight, poor judgement, poor memory, No agitated ICD10 Worksheet Patient Problems: Problems Problem Status Onset chronic disease mgmt/transitional care Acute Falls frequently Acute UTI (urinary tract infection) Acute HTN (hypertension) Acute Alzheimer disease Acute Distal radius fracture, left Acute Hypoxia Acute Confusion Acute Weakness Acute Acute CHF Acute
[2019-02-24] MEDS: DONEPEZIL HCL 5 MG TAB PO SCH (20:02)
[2019-02-24] MEDS: ASPIRIN 81 MG CHEWABLE TAB PO SCH (20:02)
[2019-02-24] MEDS: MELATONIN 3 MG TAB PO SCH (20:02)
[2019-02-24] MEDS: ATORVASTATIN CALCIUM 20 MG TAB PO SCH (20:03)
[2019-02-24] MEDS: ESCITALOPRAM OXALATE 10 MG TAB PO SCH (20:03)
[2019-02-25] MEDS: CEPHALEXIN 500 MG CAP PO SCH ×3 (03:14→11:23)
[2019-02-25] MEDS: ENOXAPARIN 40 MG/0.4 ML SYR SC SCH (08:26)
[2019-02-25] MEDS: METOPROLOL TARTRATE 25 MG TAB PO SCH (08:26)
[2019-02-25] MEDS: FUROSEMIDE 40 MG/4 ML VIAL IVP SCH (08:27)
[2019-02-25] MEDS: POLYETHYLENE GLYCOL 3350 17 GM PKT PO SCH (08:27)
[2019-02-25] MEDS: CHOLECALCIFEROL VIT D3 1,000 UNITS TAB PO SCH (08:29)
--- NOTE | 2019-02-25 09:49 | PDIAF ---
- Diagnosis Diagnosis: Diastolic CHF exacerbation, cellulitis Code Status: Full Code - Medication Management [employer] Antibiotic Stop Date: 02/28/19 (Stop date for Keflex) Discharge Medications: electronically signed and located in the Home Medication List. - Orders Services needed: Physical Therapy, Occupational Therapy Diet Recommendation: sodium restricted - Labs/Radiology BMP Date: 03/03/19 - Follow Up Care Current Providers and Referrals: Cindy Graham MD [Primary Care Provider] - As per Instructions
[2019-02-25 10:22] VITALS: BP 112/53
--- NOTE | 2019-02-25 12:40 | ASDISCHSUM ---
Discharge Information Plan Status:SNF Medically Cleared to Leave:02/25/2019 Discharge Date:02/25/2019 CM D/C Disposition:[facility] Facility ADT D/C Disposition:Correction Facility Projected Discharge Date:02/20/2019 11:00 AM Transportation at D/C:ALS/BLS Discharge Delay Reason: Follow-Up Date:02/20/2019 11:00 AM Discharge Slot: Final Diagnosis: Placement Information Referral Type:*Retirement/SNF Referral ID:[id number] Provider Name:Elia berg [place] Address 1:[address] Address 2: City:[place] Selection Factors: State:[place] Referral Type:Palliative Care Referral ID:[id number] Provider Name:[facility] ([facility] Address 1:[address] [place] Address 2: [facility]:[place] Selection Factors: State:[place] Patient Contact Information Contact Name:DELFINO Relationship:Son Address:[address] City:[place] Alternate Phone: State/Zip Code:[place] [address] Email: Financial Information Financial Class:Medicare Primary Plan Desc:MEDICARE INPATIENT Primary Plan Number:[id number] Secondary Plan Desc:ANDRZEJ/SHELBI SUPPLEMENT Secondary Plan Number:[id number] Assessment Information LACE LACE Length of stay for Answers: 7-13 days current admission Acuity / Level of Answers: Yes Care: Did the patient have an inpatient admission? Comorbidities - select Answers: Cerebrovascular disease all that apply (CVA, TIA, aneurysms, vasc ular dementia) Dementia History of falls Mild liver or renal disease Other Notes: HTN; DVT # of Emergency department Answers: 1-2 visits in the last 6 months Score: 19 Date Signed: 02/25/2019 12:39 PM Electronically Signed By:Lissette Gilliam RN [facility] CM Progress Note CM Note CM Note Notes: 02/18/2019 Case Management Note Discussed pt during rounds today. Pt admitted for SOB, UTI, celluliitis with a history of dementia. Met w/pt to discuss d/c needs. Pt son Cole present [phone]. Pt resides with Cole. Pt has recent stay in October at [facility] in [place]. PT/OT recommending SNF rehab. Cole and pt in agreement. Faxed referral. Discussed [facility]. Cole has hired [employer] to assist in the home. Phone call to Nevaeh [phone] with [facility] for assessment. Left vm. Case Management d/c poc: [facility] pending acceptance. Case Management to follow. Date Signed: 02/18/2019 12:13 PM Electronically Signed By:Lissette Gilliam RN [facility] CM Progress Note CM Note CM Note Notes: 02/20/2019 Case Management Note Discussed pt during rounds this morning. Per RN pt has significant lower extremity edema; diuresis continues. Phone call from Nora with [facility] accepting pt. Faxed updates to [facility]. Case Management d/c poc: [facility] Case Management to follow. Date Signed: 02/20/2019 11:27 AM Electronically Signed By:Lissette Gilliam RN [facility] Progress Note CM Note CM Note Notes: Patient plan of care reviewed in am rounds. Manjit currently resides with her son but has been falling. Will needs SNF rehab but also palliative care referral to help establish goals of care. Plan [facility] with palliative care via [facility]. Plan: As above Date Signed: 02/21/2019 02:40 PM Electronically Signed By:Diane Sanchez RN [facility] CM Progress Note CM Note CM Note Notes: Pt care discussed in rounds with Dr. Funez, BRANDON, RN, pt and her son,Ted. Dr Funez answered questions about treatment and discharge planning. Plan is for pt to still go to [facility] once medically ready but continues to [facility]. CM submit updates to [facility]. CM to follow. Plan: [facility] once medically ready. Date Signed: 02/23/2019 02:51 PM Electronically Signed By:SALVADOR Corea Case Management Discharge Plan Note Case Management Discharge Discharge Order Complete? Answers: Yes Patient to Obtain Answers: Other Notes: [facility] Medications Transportation Arranged Answers: [facility] Transport will Pick (Date 02/25/2019 01:00 PM & Time) Case Management Transport Answers: Yes Notes: unable to pivot Form Complete transfer; requires sarastedy; advanced dementia; unable to follow directions safel y Faxed Final Orders Answers: Yes Notes: [facility]; phone call to [facility] Agency/Facility Transfer Answers: Yes Notes: [facility]; Report Printed & Faxed to Receiving Agency Family Notified Answers: Yes Notes: phone call to Cole Discharge Comments Notes: 02/25/2019 Case Management Note Faxed final orders to [facility] in [place]. Nora arranged stretcher transport d/t dementia and inability to pivot transfer; requires sarastedy to stand. Faxed final orders to [facility]. Discussed with [facility]. [facility] to assess at [facility]. RN called report. Case Management left VM for rambo Galvan to notify of d/c. Informed rambo Hay of d/c plan. Date Signed: 02/25/2019 11:55 AM Electronically Signed By:Lissette Gilliam RN Intervention Information Intervention Type:*Incorrect Registration Date of Service:02/17/2019 05:53 PM Patient Type:Observation Staff Member:Aminata Piña Hours: Discipline: Severity: Comment: Intervention Type:*IM-Signed Date of Service:02/21/2019 02:46 PM Patient Type:Inpatient Staff Member:Gianna Garcia Hours: Discipline: Severity: Comment: Intervention Type:*IM-Signed Date of Service:02/25/2019 10:24 AM Patient Type:Inpatient Staff Member:Gianna Garcia Hours: Discipline: Severity: Comment:
--- NOTE | 2019-02-25 19:23 | GDS ---
[f rep st] DISCHARGE SUMMARY DISCHARGE DIAGNOSES: 1. Acute on chronic diastolic congestive heart failure. 2. Left lower extremity cellulitis. 3. Advanced dementia. 4. Troponin elevation. 5. Acute renal failure. 6. Metabolic encephalopathy. 7. Acute respiratory failure. 8. Stroke. 9. Hypertension. HISTORY: The patient is an 78-year-old female who presented with confusion. Son also noted shortnes s of breath. She has advanced dementia. She lives with her son. She also had left lower extremity cellulitis. HOSPITAL COURSE: On presentation, she was hypoxic and volume overloaded. This was consistent with a diastolic congestive heart failure. Her lower extremity cellulitis was treated with IV Ancef and is now transitioned to oral Keflex. Her confusion resolved, and she returned back to her baseline anthony nted state. She had a borderline troponin elevation; however, given her advanced dementia, Cardiolog y elected not to pursue it and she will be managed on medications. She never had any chest pain. He r renal function would fluctuate, sometimes limiting our ability to diurese her, but now has stabiliz ed. She had fairly severe edema, 4+, up to her upper thighs, as well as presacral edema. Blood pres sure medications were adjusted as her blood pressure was running on the low side. DISCHARGE MEDICATIONS: Please see computerized record for full detailed list. New medications: 1. Norvasc decreased to 5 mg p.o. q.h.s. 2. Keflex 500 mg p.o. q.6 hours for 3 more days. 3. Lasix 40 mg p.o. daily. 4. Metoprolol 25 mg p.o. b.i.d. 5. Potassium 20 mEq p.o. daily. Discontinued medication: Lisinopril 10 mg p.o. q.h.s. due to fluctuating renal failure. ADDITIONAL DISCHARGE INSTRUCTIONS: 1. Transfer to [facility] facility for further rehabilitation. 2. Followup basic metabolic panel is ordered. Greater than 30 minutes' time was spent arranging this discharge. Patient was seen and examined by pam thibodeaux on the day of discharge. /[id number]/MODL
[2019-02-26] MEDS ORDERED: FUROSEMIDE 40 MG TAB PO SCH (09:00)
== END 2019-02-25 13:00 | DRG 291 ==
LOC: EDUNIT# → F2W 15:37 → OBSVTOIN 15:56 → F2W 16:30
PROVIDERS: ADMIT Internal Medicine; ATTEND Internal Medicine
DX: I13.0 Hypertensive heart and chronic kidney disease with heart failure and stage 1 through stage 4 chronic kidney disease, or unspecified chronic kidney disease (principal); I50.33 Acute on chronic diastolic (congestive) heart failure; L03.116 Cellulitis of left lower limb; G93.41 Metabolic encephalopathy; J96.01 Acute respiratory failure with hypoxia; N17.9 Acute kidney failure, unspecified; I47.1 Supraventricular tachycardia; R79.89 Other specified abnormal findings of blood chemistry; R94.31 Abnormal electrocardiogram [ECG] [EKG]; F03.90 Unspecified dementia, unspecified severity, without behavioral disturbance, psychotic disturbance, mood disturbance, and anxiety; N18.9 Chronic kidney disease, unspecified; I34.0 Nonrheumatic mitral (valve) insufficiency; Z86.73 Personal history of transient ischemic attack (TIA), and cerebral infarction without residual deficits; Z86.711 Personal history of pulmonary embolism; Z86.718 Personal history of other venous thrombosis and embolism
CPT/HCPCS: 84484-ER; 96374; 97110-GP; 97163-GP; 97166-GO; 97530-GO; 97530-GP; 97535-GO; G0515-GO; J0690; J1650; J1940